=== PATIENT | male | born 1950 | race Caucasian/White ===

== ENCOUNTER → 2016-11-18 | Outpatient (REF) | payer OTHER ==
[2016-11-18 12:05] LABS: ALBUMIN 3.8 GM/DL (3.2-5.2); ALBUMIN/GLOBULIN RATIO 1.41 (1.00-1.93); ALKALINE PHOSPHATASE 59 U/L (45-117); ALT/SGPT 26 U/L (12-78); ANION GAP 7 MEQ/L (8-16); AST/SGOT 21 U/L (15-37); BILIRUBIN,TOTAL 0.6 MG/DL (0.2-1.0); BLOOD UREA NITROGEN 22 MG/DL (7-18); CALCIUM LEVEL 8.8 MG/DL (8.8-10.2); CARBON DIOXIDE LEVEL 30 MEQ/L (21-32); CHLORIDE LEVEL 100 MEQ/L (98-107); CREATININE FOR GFR 1.06 MG/DL (0.70-1.30); GLOMERULAR FILTRATION RATE > 60.0 (>49); GLUCOSE, FASTING 167 MG/DL (80-110); POTASSIUM SERUM 4.8 MEQ/L (3.5-5.1); SODIUM LEVEL 137 MEQ/L (136-145); TOTAL PROTEIN 6.5 GM/DL (6.4-8.2)
== END ==
LOC: M SFHCCLAY 08:40
PROVIDERS: ATTEND Family Medicine
DX: E10.65 Type 1 diabetes mellitus with hyperglycemia (principal); Z12.5 Encounter for screening for malignant neoplasm of prostate; E55.9 Vitamin D deficiency, unspecified

== ENCOUNTER → 2016-11-21 | Outpatient (CLI) | payer BC, OTHER ==
[~2016-11-21] MED LIST: E-Z PAQUE 60% w/v SUSP 355ML BOTTLE As Ordered ONE; E-Z-GAS II EFFERVESCENT PACKET (SODIUM BICARB./CITRIC ACID/SIMETHICONE) As Ordered ONE; E-Z-HD 98% w/w 340GM SUSP BTL As Ordered ONE
--- NOTE | 2016-11-21 17:31 | REP ---
UPPER GI, AIR CONTRAST: The procedure was performed under the direct supervision of Dr. Kelsey. The images were reviewed with Dr. Kelsey. The cost accountant film shows no organomegaly or pathological masses. The intestinal gas pattern is nonspecific. There are vascular calcifications identified. Liquid barium and gas-producing granules were given in the erect position as well as liquid barium in the prone oblique position in order to perform a double-contrast upper GI examination. The oral and pharyngeal stages of deglutition are unremarkable. Esophageal transport is prompt and efficient and there is no esophagitis, stricture, mucosal ring, or hiatal hernia. There is gastroesophageal reflux demonstrated to the level of the thoracic inlet. The stomach granado are normally outlined. The rugal folds are smooth and regular. There is no gastritis, neoplasm, or ulcer disease. The duodenal granado are normally outlined. The mucosal folds are smooth and regular. There is no duodenitis, pancreatitis, peptic ulcer disease, or neoplasm. The visualized portion of the proximal small bowel appears normal in course and caliber. IMPRESSION: There is gastroesophageal reflux demonstrated to the level of the thoracic inlet, otherwise unremarkable double contrast upper GI examination. 1 minute and 52 seconds of fluoroscopic time was utilized for this procedure. Reviewed by EDWARD Jane 11/22/2016 03:26 PEdited and Signed by Juaquin Kelsey MD 11/22/2016 04:54 P
== END ==
LOC: M RAD 08:42
PROVIDERS: ATTEND Family Medicine
DX: R13.14 Dysphagia, pharyngoesophageal phase (principal)

== ENCOUNTER → 2017-05-16 | Outpatient (REF) | payer MEDICARE, OTHER | LOC: M SFHCPLAZ 10:23 | PROVIDERS: ATTEND Family Medicine | DX: R63.4 Abnormal weight loss (principal); E10.65 Type 1 diabetes mellitus with hyperglycemia; E55.9 Vitamin D deficiency, unspecified; D51.9 Vitamin B12 deficiency anemia, unspecified ==

== ENCOUNTER → 2017-05-21 | Outpatient (REF) | payer MEDICARE, OTHER ==
[2017-05-21 12:49] LABS: VITAMIN B12 LEVEL 470 PG/ML (247-911)
[2017-05-21 13:03] LABS: ALBUMIN 3.8 GM/DL (3.2-5.2); ALBUMIN/GLOBULIN RATIO 1.23 (1.00-1.93); ALKALINE PHOSPHATASE 55 U/L (45-117); ALT/SGPT 29 U/L (12-78); ANION GAP 5 MEQ/L (8-16); AST/SGOT 20 U/L (15-37); BILIRUBIN,TOTAL 0.6 MG/DL (0.2-1.0); BLOOD UREA NITROGEN 26 MG/DL (7-18); CALCIUM LEVEL 8.6 MG/DL (8.8-10.2); CARBON DIOXIDE LEVEL 32 MEQ/L (21-32); CHLORIDE LEVEL 102 MEQ/L (98-107); CREATININE FOR GFR 0.92 MG/DL (0.70-1.30); FREE T4 0.86 NG/DL (0.76-1.46); GLOMERULAR FILTRATION RATE > 60.0 (>49); GLUCOSE, FASTING 125 MG/DL (80-110); MEAN CORPUSCULAR HEMOGLOBIN 31.8 pg (27.0-33.0); MEAN CORPUSCULAR HGB CONC 34.2 g/dl (32.0-36.5); MEAN CORPUSCULAR VOLUME 92.8 fl (80.0-96.0); POTASSIUM SERUM 4.9 MEQ/L (3.5-5.1); SODIUM LEVEL 139 MEQ/L (136-145); TOTAL PROTEIN 6.9 GM/DL (6.4-8.2); WHITE BLOOD COUNT 4.6 K/mm3 (4.0-10.0)
== END ==
LOC: M SFHCPLAZ 09:00 → M LABDRAWC 09:20
PROVIDERS: ATTEND Family Medicine
DX: R63.4 Abnormal weight loss (principal); E10.65 Type 1 diabetes mellitus with hyperglycemia; E55.9 Vitamin D deficiency, unspecified; D51.9 Vitamin B12 deficiency anemia, unspecified

== ENCOUNTER 2017-08-13 11:05 | Day surgery (SDC) | payer MEDICARE, BC, OTHER ==
[~2017-08-13] VITALS: Ht 175.3 cm; Wt 74.8 kg
[~2017-08-13 11:05] MED LIST changes: +ASPI325T28 PO; +ATEN50TA2 PO; +ATOR1TAB19 PO; +DESM1TAB4 PO; -E-Z PAQUE 60% w/v SUSP 355ML BOTTLE As Ordered ONE; -E-Z-GAS II EFFERVESCENT PACKET (SODIUM BICARB./CITRIC ACID/SIMETHICONE) As Ordered ONE; -E-Z-HD 98% w/w 340GM SUSP BTL As Ordered ONE; +FISH1000 PO; +GABA-282 PO; +INSUH10VL SC; +LOSA50TA20 PO; +TOUJ1.2I SC; +VITA100067 PO; +VITA500T3 PO
[2017-08-13] MEDS ORDERED: NS 1,000 ML IV ONE (12:45)
[2017-08-13] MEDS ORDERED: LIDOCAINE 2% INJ 100 MG/5 ML SDV (FOR ANES.) As Ordered ONE (13:13)
[2017-08-13] MEDS ORDERED: PROPOFOL 200 MG/20 ML VIAL As Ordered ONE ×2 (13:13→13:16)
--- NOTE | 2017-08-13 13:31 | ROOR ---
Patient Name: Ayaz De Souza Procedure Date: 08/13/2017 1:17 PM Date of : 1950 Age: 67 Room: [facility] Gender: Male Note Status: Finalized Procedure: Upper GI endoscopy Indications: Follow-up of gastroparesis Providers: Asif De Los Santos MD Referring MD: Ronni Teran MD Requesting Provider: Medicines: Monitored Anesthesia Care Complications: No immediate complications. Procedure: Pre-Anesthesia Assessment: - The heart rate, respiratory rate, oxygen saturations, blood pressure, adequacy of pulmonary ventilation, and response to care were monitored throughout the procedure. The Endoscope was introduced through the mouth, and advanced to the second part of duodenum. The upper GI endoscopy was accomplished without difficulty. The patient tolerated the procedure well. Findings: The Z-line was variable and was found 40 cm from the incisors. A small hiatal hernia was present. No other significant abnormalities were identified in a careful examination of the stomach. The exam of the duodenum was otherwise normal. Impression: - Z-line variable, 40 cm from the incisors. - Small hiatal hernia. - No specimens collected. - The examination was otherwise normal. Recommendation: - Patient has a contact number available for emergencies. The signs and symptoms of potential delayed complications were discussed with the patient. Return to normal activities tomorrow. Written discharge instructions were provided to the patient. - High fiber diet. - Discharge patient to home. - Follow an antireflux regimen. - Continue present medications. - Return to referring physician. - The findings and recommendations were discussed with the patient's family. Asif De Los Santos MD Asif De Los Santos MD 08/13/2017 1:30:57 PM This report has been signed electronically. Number of Addenda: 0 Note Initiated On: 08/13/2017 1:17 PM Estimated Blood Loss: Estimated blood loss: none.
--- NOTE | 2017-08-13 13:48 | ROOR ---
Patient Name: Ayaz De Souza Procedure Date: 08/13/2017 1:19 PM Date of : 1950 Age: 67 Room: [facility] Gender: Male Note Status: Finalized Procedure: Total Colonoscopy to Cecum + Cold Snare Polypectomy Indications: High risk colon cancer surveillance: Personal history of colonic polyps Providers: Asif De Los Santos MD Referring MD: Ronni Teran MD Requesting Provider: Medicines: Monitored Anesthesia Care Complications: No immediate complications. Procedure: Pre-Anesthesia Assessment: - The heart rate, respiratory rate, oxygen saturations, blood pressure, adequacy of pulmonary ventilation, and response to care were monitored throughout the procedure. The Colonoscope was introduced through the anus and advanced to the cecum, identified by appendiceal orifice and ileocecal valve. The colonoscopy was performed without difficulty. The patient tolerated the procedure well. The quality of the bowel preparation was adequate to identify polyps. Findings: The perianal and digital rectal examinations were normal. Non-bleeding internal hemorrhoids were found during retroflexion. The hemorrhoids were small and Grade I (internal hemorrhoids that do not prolapse). Scattered small-mouthed diverticula were found in the recto-sigmoid colon, sigmoid colon and descending colon. A small polyp was found at 10 cm proximal to the anus. The polyp was sessile. The polyp was removed with a cold snare. Resection and retrieval were complete. A small polyp was found in the ascending colon. The polyp was sessile. The polyp was removed with a cold snare. Resection and retrieval were complete. The exam was otherwise without abnormality on direct and retroflexion views. Impression: - Non-bleeding internal hemorrhoids. - Diverticulosis in the recto-sigmoid colon, in the sigmoid colon and in the descending colon. - One small polyp at 10 cm proximal to the anus, removed with a cold snare. Resected and retrieved. - One small polyp in the ascending colon, removed with a cold snare. Resected and retrieved. - The examination was otherwise normal on direct and retroflexion views. - The exam was otherwise normal to the cecum. Recommendation: - Patient has a contact number available for emergencies. The signs and symptoms of potential delayed complications were discussed with the patient. Return to normal activities tomorrow. Written discharge instructions were provided to the patient. - High fiber diet. - Discharge patient to home. - Continue present medications. - Await pathology results. - Telephone GI clinic for pathology results in 1 week. - Repeat colonoscopy in 5 years for surveillance based on pathology results. - Return to referring physician. - The findings and recommendations were discussed with the patient's family. Asif De Los Santos MD Asif De Los Santos MD 08/13/2017 1:47:43 PM This report has been signed electronically. Number of Addenda: 0 Note Initiated On: 08/13/2017 1:19 PM Estimated Blood Loss: Estimated blood loss: none.
[2017-08-13 14:21] VITALS: BP 126/65
== END 2017-08-13 14:50 | disposition home or self-care (01) ==
LOC: M OPP 11:05
PROVIDERS: ATTEND Internal Medicine Gastroenterology
DX: Z12.11 Encounter for screening for malignant neoplasm of colon (principal); Z86.010 Personal history of colon polyps; K62.1 Rectal polyp; D12.2 Benign neoplasm of ascending colon; K64.0 First degree hemorrhoids; K57.30 Diverticulosis of large intestine without perforation or abscess without bleeding; K31.84 Gastroparesis; K22.8 Other specified diseases of esophagus; K44.9 Diaphragmatic hernia without obstruction or gangrene; R12 Heartburn; R00.1 Bradycardia, unspecified; I48.91 Unspecified atrial fibrillation; I10 Essential (primary) hypertension; E78.5 Hyperlipidemia, unspecified; Z95.0 Presence of cardiac pacemaker; E10.9 Type 1 diabetes mellitus without complications; M19.90 Unspecified osteoarthritis, unspecified site; R21 Rash and other nonspecific skin eruption; G62.9 Polyneuropathy, unspecified; G47.30 Sleep apnea, unspecified; R06.83 Snoring; R35.1 Nocturia; R19.8 Other specified symptoms and signs involving the digestive system and abdomen; Z79.82 Long term (current) use of aspirin; Z79.899 Other long term (current) drug therapy

== ENCOUNTER → 2017-12-15 | Outpatient (REF) | payer MEDICARE, OTHER ==
[2017-12-15 11:21] LABS: BASO % 0.6 % (0.0-1.0); EOS # 0.1 10^3/uL (0.0-0.50); HEMATOCRIT 39.5 % (42.0-52.0); HEMOGLOBIN 13.2 g/dl (13.5-17.5); IMMATURE GRANULOCYTE % 0.2 % (0-3.0); LYMPH # 1.3 10^3/uL (1.5-4.5); MEAN CORPUSCULAR HEMOGLOBIN 31.1 pg (27.0-33.0); MEAN CORPUSCULAR HGB CONC 33.4 g/dl (32.0-36.5); MEAN CORPUSCULAR VOLUME 93.2 fl (80.0-96.0); MONO # 0.5 10^3/uL (0.0-0.8); MONO % 11.5 % (0.0-5.0); NEUTROPHILS # 2.6 10^3/uL (1.8-7.7); NEUTROPHILS % 55.7 % (36.0-66.0); PLATELET COUNT, AUTOMATED 130 10^3/uL (150-450); RED BLOOD COUNT 4.24 10^6/uL (4.30-6.10); RED CELL DISTRIBUTION WIDTH 12.4 % (11.5-14.5); WHITE BLOOD COUNT 4.6 10^3/uL (4.0-10.0)
[2017-12-15 11:39] LABS: ESTIMATED AVERAGE GLUCOSE 174 MG/DL (60-110); HEMOGLOBIN A1c 7.7 %
[2017-12-15 11:54] LABS: TOTAL 25(OH) VITAMIN D 48.5 NG/ML (30.0-100.0)
[2017-12-15 12:31] LABS: ALBUMIN 3.7 GM/DL (3.2-5.2); ALBUMIN/GLOBULIN RATIO 1.16 (1.00-1.93); ALKALINE PHOSPHATASE 55 U/L (45-117); ALT/SGPT 27 U/L (12-78); ANION GAP 6 MEQ/L (8-16); AST/SGOT 22 U/L (7-37); BILIRUBIN,TOTAL 0.4 MG/DL (0.2-1.0); BLOOD UREA NITROGEN 24 MG/DL (7-18); CALCIUM LEVEL 8.4 MG/DL (8.8-10.2); CARBON DIOXIDE LEVEL 27 MEQ/L (21-32); CHLORIDE LEVEL 105 MEQ/L (98-107); CHOLESTEROL LEVEL 154 MG/DL (<200); CHOLESTEROL RISK RATIO 1.811 (<5); CREATININE FOR GFR 0.95 MG/DL (0.70-1.30); GLOMERULAR FILTRATION RATE > 60.0 (>49); GLUCOSE, FASTING 163 MG/DL (70-100); HDL CHOLESTEROL 85 MG/DL (>40); LDL CHOLESTEROL 60.2 MG/DL (<100); NON-HDL-C 69 MG/DL; PSA SCREENING 0.63 NG/ML (< 4.0); SODIUM LEVEL 138 MEQ/L (136-145); TOTAL PROTEIN 6.9 GM/DL (6.4-8.2); TRIGLYCERIDES LEVEL 44 MG/DL (<150)
[2017-12-15 12:43] LABS: MALB URINE SIEMENS 27.6 MG/L; MAU/CREAT RATIO 15.4 MCG/MG (0.0-30.0)
== END ==
LOC: M SFHCCLAY 08:27
DX: D51.9 Vitamin B12 deficiency anemia, unspecified (principal); E78.4 Other hyperlipidemia; E10.65 Type 1 diabetes mellitus with hyperglycemia; Z12.5 Encounter for screening for malignant neoplasm of prostate; K31.84 Gastroparesis; E55.9 Vitamin D deficiency, unspecified
CPT/HCPCS: 84443

== ENCOUNTER → 2018-03-31 | Outpatient (REF) | payer MEDICARE, OTHER ==
[2018-03-31 12:07] LABS: ANION GAP 4 MEQ/L (8-16); BLOOD UREA NITROGEN 18 MG/DL (7-18); CALCIUM LEVEL 8.2 MG/DL (8.8-10.2); CARBON DIOXIDE LEVEL 31 MEQ/L (21-32); CHLORIDE LEVEL 105 MEQ/L (98-107); CREATININE FOR GFR 0.84 MG/DL (0.70-1.30); GLOMERULAR FILTRATION RATE > 60.0 (>49); GLUCOSE, FASTING 79 MG/DL (70-100); POTASSIUM SERUM 4.4 MEQ/L (3.5-5.1); SODIUM LEVEL 140 MEQ/L (136-145)
== END ==
LOC: M LABDRAWC 11:27
DX: E10.42 Type 1 diabetes mellitus with diabetic polyneuropathy (principal)
CPT/HCPCS: 80048

== ENCOUNTER → 2019-02-12 | Outpatient (REF) | payer MEDICARE, OTHER ==
[~2019-02-12] MED LIST changes: +ASPI-222 PO; -ASPI325T28 PO; +DESM0.1T2 PO; -DESM1TAB4 PO; -GABA-282 PO; +GABA-843 PO; -LOSA50TA20 PO; +LOSA50TA88 PO
[2019-02-12 16:55] LABS: HEMATOCRIT 39.2 % (42.0-52.0); HEMOGLOBIN 13.1 g/dl (13.5-17.5); MEAN CORPUSCULAR HEMOGLOBIN 30.8 pg (27.0-33.0); MEAN CORPUSCULAR HGB CONC 33.4 g/dl (32.0-36.5); MEAN CORPUSCULAR VOLUME 92.2 fl (80.0-96.0); PLATELET COUNT, AUTOMATED 128 10^3/uL (150-450); RED BLOOD COUNT 4.25 10^6/uL (4.30-6.10); WHITE BLOOD COUNT 5.1 10^3/uL (4.0-10.0)
[2019-02-12 17:03] LABS: ALBUMIN 3.5 GM/DL (3.2-5.2); ALT/SGPT 35 U/L (12-78); BILIRUBIN,TOTAL 0.4 MG/DL (0.2-1.0); BLOOD UREA NITROGEN 24 MG/DL (7-18); CALCIUM LEVEL 8.4 MG/DL (8.8-10.2); CARBON DIOXIDE LEVEL 28 MEQ/L (21-32); CHLORIDE LEVEL 103 MEQ/L (98-107); CHOLESTEROL LEVEL 147 MG/DL (<200); CHOLESTEROL RISK RATIO 1.837 (<5); CREATININE FOR GFR 0.87 MG/DL (0.70-1.30); GLOMERULAR FILTRATION RATE > 60.0 (>49); GLUCOSE, FASTING 152 MG/DL (70-100); HDL CHOLESTEROL 80 MG/DL (>40); LDL CHOLESTEROL 58 MG/DL (<100); NON-HDL-C 67 MG/DL; POTASSIUM SERUM 5.1 MEQ/L (3.5-5.1); SODIUM LEVEL 136 MEQ/L (136-145); TOTAL PROTEIN 6.8 GM/DL (6.4-8.2); TRIGLYCERIDES LEVEL 44 MG/DL (<150)
[2019-02-12 17:32] LABS: MALB URINE SIEMENS 26.2 MG/L; MAU/CREAT RATIO 24.7 MCG/MG (0.0-30.0)
[2019-02-12 18:16] LABS: HEMOGLOBIN A1c 6.5 %
== END ==
LOC: M SFHCCLAY 09:07
PROVIDERS: ATTEND Family Medicine
DX: Z12.5 Encounter for screening for malignant neoplasm of prostate (principal); E78.49 Other hyperlipidemia; I48.0 Paroxysmal atrial fibrillation; E10.65 Type 1 diabetes mellitus with hyperglycemia
CPT/HCPCS: 80053; 80061; 82043; 83036; 85027; G0103

== ENCOUNTER → 2019-08-04 | Outpatient (REF) | payer MEDICARE, OTHER ==
[~2019-08-04] MED LIST changes: -ASPI-222 PO; +ASPI-527 PO; +CYAN500T8 PO; -VITA500T3 PO
[2019-08-04 12:47] LABS: MALB URINE SIEMENS 10.9 MG/L; MAU/CREAT RATIO 10.9 MCG/MG (0.0-30.0)
== END ==
LOC: M LAB REF 11:21 → M LABDRAWC 11:21
PROVIDERS: ATTEND Nurse Practitioner Family
DX: E10.42 Type 1 diabetes mellitus with diabetic polyneuropathy (principal)

== ENCOUNTER → 2019-10-15 | Outpatient (REF) | payer MEDICARE, OTHER ==
[2019-10-15 11:54] LABS: HEMATOCRIT 43.3 % (42.0-52.0); MEAN CORPUSCULAR HEMOGLOBIN 30.4 pg (27.0-33.0); MEAN CORPUSCULAR HGB CONC 32.3 g/dl (32.0-36.5); MEAN CORPUSCULAR VOLUME 93.9 fl (80.0-96.0); PLATELET COUNT, AUTOMATED 154 10^3/uL (150-450); RED BLOOD COUNT 4.61 10^6/uL (4.30-6.10); WHITE BLOOD COUNT 7.2 10^3/uL (4.0-10.0)
[2019-10-15 12:16] LABS: ALT/SGPT 31 U/L (12-78); BILIRUBIN,TOTAL 0.5 MG/DL (0.2-1.0); BLOOD UREA NITROGEN 26 MG/DL (7-18); CALCIUM LEVEL 8.7 MG/DL (8.8-10.2); CARBON DIOXIDE LEVEL 29 MEQ/L (21-32); CHLORIDE LEVEL 100 MEQ/L (98-107); CHOLESTEROL LEVEL 157 MG/DL (<200); CHOLESTEROL RISK RATIO 1.764 (<5); CREATININE FOR GFR 1.01 MG/DL (0.70-1.30); FOLATE 10.1 NG/ML (>5.4); FREE T4 0.99 NG/DL (0.76-1.46); GLOMERULAR FILTRATION RATE > 60.0 (>49); GLUCOSE, FASTING 209 MG/DL (70-100); HDL CHOLESTEROL 89 MG/DL (>40); LDL CHOLESTEROL 61 MG/DL (<100); NON-HDL-C 68 MG/DL; POTASSIUM SERUM 5.4 MEQ/L (3.5-5.1); SODIUM LEVEL 136 MEQ/L (136-145); TOTAL PROTEIN 7.2 GM/DL (6.4-8.2); TRIGLYCERIDES LEVEL 37 MG/DL (<150); VITAMIN B12 LEVEL > 2000 PG/ML (247-911)
[2019-10-15 12:34] LABS: HEMOGLOBIN A1c 6.5 %
[2019-10-17 00:10] LABS: TESTOSTERONE FREE (DIRECT) 7.3 pg/mL (6.6-18.1)
== END ==
LOC: M SFHCPLAZ 09:52
PROVIDERS: ATTEND Family Medicine
DX: E10.69 Type 1 diabetes mellitus with other specified complication (principal); D51.9 Vitamin B12 deficiency anemia, unspecified; I10 Essential (primary) hypertension; E78.5 Hyperlipidemia, unspecified

== ENCOUNTER → 2020-03-27 | Outpatient (REF) | payer MEDICARE, OTHER ==
[2020-03-27 19:32] LABS: VITAMIN B12 LEVEL 1048 PG/ML
[2020-03-27 19:33] LABS: FOLATE 10.8 NG/ML
[2020-03-27 19:47] LABS: HEMOGLOBIN A1c 6.6 %
[2020-03-28 16:34] LABS: ALBUMIN 4.41 GM/DL (3.29-5.55); ALPHA-1-GLOBULIN % 3.7 % (2.9-4.9); ALPHA-1-GLOBULINS 0.26 GM/DL (0.17-0.41); ALPHA-2-GLOBULINS 0.53 GM/DL (0.42-0.99); ALPHA-2-GLOBULINS % 7.6 % (7.1-11.8); BETA-1-GLOBULINS 0.35 GM/DL (0.28-0.60); BETA-2-GLOBULINS % 4.3 % (3.2-6.5); GAMMA GLOBULIN % 16.4 % (11.1-18.8); GAMMA GLOBULINS 1.15 GM/DL (0.65-1.58)
[2020-04-01 17:07] LABS: CERULOPLASMIN 22.5 mg/dL (16.0-31.0); VITAMIN B1 LEVEL WHOLE BLOOD 77.3 nmol/L (66.5-200.0); VITAMIN B6,PYRIDOXAL PHOSPHATE 19.2 ug/L (5.3-46.7); VITAMIN E(ALPHA TOCOPHEROL) 10.2 mg/L (9.0-29.0); VITAMIN E(GAMMA TOCOPHEROL) 1.8 mg/L (0.5-4.9)
== END ==
LOC: M LABDRAWC 16:01
PROVIDERS: ATTEND Psychiatry & Neurology Neurology
DX: E11.9 Type 2 diabetes mellitus without complications (principal); D51.9 Vitamin B12 deficiency anemia, unspecified; G90.09 Other idiopathic peripheral autonomic neuropathy; Z79.84 Long term (current) use of oral hypoglycemic drugs; Z79.899 Other long term (current) drug therapy

== ENCOUNTER → 2020-06-01 | Outpatient (CLI) | payer MEDICARE, BC, OTHER ==
[2020-06-01 14:42] LABS: BLOOD UREA NITROGEN 16 MG/DL (7-18); CALCIUM LEVEL 8.7 MG/DL (8.8-10.2); CARBON DIOXIDE LEVEL 30 MEQ/L (21-32); CHLORIDE LEVEL 102 MEQ/L (98-107); CREATININE FOR GFR 0.96 MG/DL (0.70-1.30); GLOMERULAR FILTRATION RATE > 60.0 (>49); GLUCOSE, FASTING 76 MG/DL (70-100); POTASSIUM SERUM 4.8 MEQ/L (3.5-5.1); SODIUM LEVEL 137 MEQ/L (136-145)
== END ==
LOC: M PLALAB 09:53
PROVIDERS: ATTEND Physician Assistant
DX: E11.9 Type 2 diabetes mellitus without complications (principal)
CPT/HCPCS: 36415; 80048; G0463

== ENCOUNTER → 2020-06-05 | Outpatient (CLI) | payer MEDICARE, BC, OTHER ==
[~2020-06-05] MED LIST changes: +ISOVUE-370 76% 100ML VIAL As Ordered ONE
--- NOTE | 2020-06-05 08:21 | REPVR ---
PROCEDURE INFORMATION: Exam: CT Neck With Contrast Exam date and time: 06/05/2020 8:01 AM Age: 70 years old Clinical indication: Pain; Other: Lyarnx dysphonia TECHNIQUE: Imaging protocol: Computed tomography images of the neck with intravenous contrast. Radiation optimization: All CT scans at this facility use at least one of these dose optimization techniques: automated exposure control; mA and/or kV adjustment per patient size (includes targeted exams where dose is matched to clinical indication); or iterative reconstruction. Contrast material: ISOVUE 370; Contrast volume: 75 ml; Contrast route: INTRAVENOUS (IV); COMPARISON: No relevant prior studies available. FINDINGS: Paranasal sinuses: Opacified left maxillary sinus. Nasopharynx: Unremarkable. Oropharynx: Unremarkable. No significant tonsillar enlargement. Hypopharynx: Asymmetric mucosal thickening with partial effacement of the right piriform recess. Larynx: Unremarkable. Normal epiglottis. Retropharyngeal space: Unremarkable. Submandibular/Parotid glands: Normal. Glands are normal in size. Thyroid: Normal. No enlarged or calcified nodules. Lymph nodes: Unremarkable. No lymphadenopathy. Trachea: Visualized trachea is unremarkable. Lungs: Left chest pacemaker. Bones/joints: Severe multilevel degenerative disease. Stenosis of the spinal canal and neural foramina at several levels most pronounced at C6-C7. Vasculature: Atherosclerotic disease. Soft tissues: Unremarkable. No significant soft tissue swelling. IMPRESSION: Asymmetric mucosal thickening with partial effacement of the right piriform recess. Electronically signed by: Dane Medrano On 06/05/2020 08:21:41 AM
== END ==
LOC: M RAD 07:18
PROVIDERS: ATTEND Physician Assistant
DX: R49.0 Dysphonia (principal)
CPT/HCPCS: 70491; Q9967

== ENCOUNTER → 2020-07-31 | Outpatient (REF) | payer MEDICARE, OTHER ==
[~2020-07-31] MED LIST changes: -ISOVUE-370 76% 100ML VIAL As Ordered ONE
[2020-07-31 18:49] LABS: CREATININE, URINE 22.8 MG/DL; MALB URINE SIEMENS < 5.0 MG/L; MAU/CREAT RATIO 21.9 MCG/MG (0.0-30.0)
== END ==
LOC: M LAB REF 16:54
PROVIDERS: ATTEND Internal Medicine Endocrinology, Diabetes & Metabolism
DX: E10.42 Type 1 diabetes mellitus with diabetic polyneuropathy (principal)

== ENCOUNTER → 2021-03-27 | Outpatient (REF) | payer MEDICARE, OTHER ==
[~2021-03-27] MED LIST changes: +CYAN500T14 PO; -CYAN500T8 PO; +GABA-282 PO; -GABA-843 PO
[2021-03-27 12:18] LABS: HEMATOCRIT 41.4 % (42.0-52.0); HEMOGLOBIN 13.9 g/dl (13.5-17.5); MEAN CORPUSCULAR HEMOGLOBIN 31.2 pg (27.0-33.0); MEAN CORPUSCULAR HGB CONC 33.6 g/dl (32.0-36.5); MEAN CORPUSCULAR VOLUME 92.8 fl (80.0-96.0); PLATELET COUNT, AUTOMATED 140 10^3/uL (150-450); RED BLOOD COUNT 4.46 10^6/uL (4.30-6.10); WHITE BLOOD COUNT 4.7 10^3/uL (4.0-10.0)
[2021-03-27 12:56] LABS: ALBUMIN 3.6 GM/DL (3.2-5.2); ALT/SGPT 35 U/L (12-78); BILIRUBIN,TOTAL 0.5 MG/DL (0.2-1.0); BLOOD UREA NITROGEN 22 MG/DL (7-18); CALCIUM LEVEL 8.2 MG/DL (8.8-10.2); CARBON DIOXIDE LEVEL 29 MEQ/L (21-32); CHLORIDE LEVEL 102 MEQ/L (98-107); CHOLESTEROL LEVEL 138 MG/DL (<200); CHOLESTEROL RISK RATIO 1.815 (<5); CREATININE FOR GFR 0.96 MG/DL (0.70-1.30); GLOMERULAR FILTRATION RATE > 60.0 (>49); GLUCOSE, FASTING 185 MG/DL (70-100); HDL CHOLESTEROL 76 MG/DL (>40); LDL CHOLESTEROL 52 MG/DL (<100); MAGNESIUM LEVEL 2.4 MG/DL (1.8-2.4); NON-HDL-C 62 MG/DL; POTASSIUM SERUM 5.5 MEQ/L (3.5-5.1); SODIUM LEVEL 134 MEQ/L (136-145); TOTAL PROTEIN 6.7 GM/DL (6.4-8.2); TRIGLYCERIDES LEVEL 52 MG/DL (<150)
== END ==
LOC: M LABDRAWC 11:36
PROVIDERS: ATTEND Physician Assistant
DX: I48.3 Typical atrial flutter (principal); I10 Essential (primary) hypertension; E78.00 Pure hypercholesterolemia, unspecified

== ENCOUNTER → 2021-07-16 | Outpatient (CLI) | payer MEDICARE, BC, OTHER ==
[~2021-07-16] MED LIST changes: +AMIT50TA; +PREG150C
== END ==
LOC: M LABSMTC 09:57
PROVIDERS: ATTEND Anesthesiology
DX: Z01.812 Encounter for preprocedural laboratory examination (principal)

== ENCOUNTER 2021-07-19 11:45 | Day surgery (SDC) | payer MEDICARE, BC, OTHER ==
[~2021-07-19] VITALS: Ht 175.3 cm; Wt 88.9 kg
[~2021-07-19 11:45] MED LIST changes: +LR 1,000 ML IV ONE; +ceFAZolin SOD 2 GM in IV 1 EA IV ONE
--- OUTSIDE RECORDS SUMMARY | 2021-07-19 11:50 | CCD ---
Author Author [facility] Organization [facility] Address Unknown Phone Unavailable Care Team Providers Care Box Car Loader Name Role Phone Elier Valencia Unavailable PROBLEMS Type Condition ICD9-CM Code VEA13-AU Code Onset Dates Condition S tatus W/U Status Risk SNOMED Code Notes Problem Paroxysmal atrial fibrillation I48.0 Active confir med 649796209 Problem Encounter for screening for malignant neoplasm of prostate Z12.5 Active confirmed 741335157 Problem Essential (primary) hypertension I10 Active conf irmed 92178217 Problem Type 1 diabetes mellitus with hyperglycemia E10.65 Active confirmed 658857315871077 Problem Enlarged prostate with lower urinary tract symptoms N40.1 Active confirmed 56651701443480 Problem Vitamin D deficiency, unspecified E55.9 Active con firmed 34492701 Problem Vitamin B12 deficiency anemia, unspecified D51.9 Active confirmed 62116220 Problem Esophageal dysphagia R13.14 Active confirmed 26824327 Problem 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.43 Active confirmed 080629527 Problem Gastroparesis K31.84 Active confirmed 656257 006 Problem Erectile dysfunction, unspecified erectile dysfunction typ e N52.9 Active confirmed 097886328 Problem Presence of cardiac pacemaker Z95.0 Active confirm ed 532566330 Problem Controlled type 1 diabetes mellitus with diabeti c polyneuropathy E10.42 Active confirmed 44039881 Problem Diabetic erectile dysfunction associated with type 1 diabetes mellitus E10.69 Active confirmed 660128018931 Problem Medicare annual wellness visit, subsequent Z00.00 Active confirmed 044463791 Problem Other hyperlipidemia E78.4 Active confirmed 49384287 Problem Acquired 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 Active confirm ed 6832212 Problem Painful diabetic neuropathy E11.40 Active confirmed 910638676 ALLERGIES Allergen (clinical drug ingredient) Drug/Non Drug Allergy do cumented on EMR Reaction Allergy Type Onset Date Status audichioomi calvolinaamie (as needed) no effect Non Drug Allergy Active ENCOUNTERS from 1950 to 2021-04-30 Encounter Location Date Provider Diagnosis [facility] Sebastian SOLIS [phone] [place] [address] 13 Apr, 2021 Elier Valencia Controlled type 1 diabetes mellitus with hypoglycemia E10.649 ; 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 ; Controlled type 1 diabetes mellitus with diabetic polyneuropathy E10.42 ; Essential (primary) hypertension I10 ; Other hyperlipidemia E78.4 ; Paroxysmal atrial fibrillation I48.0 ; Enlarged prostate with lower urinary tract symptoms N40.1 ; Vitamin B12 deficiency anemia, unspecified D51.9 ; Vitamin D deficiency, unspecified E55.9 and Encounter for immunization Z23 IMMUNIZATIONS Vaccine Route Administration Date Status Moderna #2 dose COVID-19(given elsewhere) SARSCOV2 VAC 100MC G/0.5ML IM Unknown January 11, 2021 Administered Influenza (High Dose 65 & up) Unknown Jun 26, 2018 Ad ministered Influenza (High Dose 65 & up) Unknown Jul 23, 2017 Ad ministered Pneumococcal Adult 0.5mL Pneumovax 23 IM Intramuscular Apr 27 021 Administered Pneumococcal 0.5mL Prevnar 13 IM Intramuscular Jul 10, 2018 A dministered Influenza 6mo & up Fluzone Unknown Jul 16, 2016 Admin istered Moderna #1 dose COVID-19(given elsewhere) SARSCOV2 VAC 100MC G/0.5ML IM Unknown December 14, 2020 Administered Influenza 6mo & up Fluzone Unknown Aug 01, 2012 Admin istered Influenza 6mo & up Fluzone IM Intramuscular Jul 10, 2011 Admi nistered Influenza 6mo & up Fluzone IM Intramuscular Jun 19, 2010 Admi nistered SOCIAL HISTORY Tobacco Use: Social History Observation Description Date Details (start date - stop date) Never Smoker Sex Assigned At : Social History Observation Description Sex Assigned At Unknown Audit Question Answer Notes Total Score: 3 Interpretation: Alcohol Education Language: Question Answer Notes Languages spoken: Andorran Sexual Hx: Question Answer Notes Had sex in the last 12 months (vaginal, oral, or anal)? Yes Have you ever had an STD? No with Women only Use protection? No Drug and Alcohol Question Answer Notes Total Score: 0 Interpretation: No problems reported Alcohol Screening: Question Answer Notes Did you have a drink containing alcohol in the past year? Ye s Points 3 Interpretation Negative How often did you have six or more drinks on one occas ion in the past year? Never (0 points) How many drinks did you have on a typica l day when you were drinking in the past year? 1 or 2 (0 points) How often did you have a drink containing alcohol in t he past year? Two to three times per week (3 points) Tobacco Use: Question Answer Notes Are you a: never smoker REASON FOR REFERRAL No Information VITAL SIGNS Weight 197 lbs Apr, Weight-kg 89.36 kg Apr, Height 69 in Apr, BMI 29.09 kg/m2 Apr, Heart Rate 70 /min Apr, Respiratory Rate 16 /min Apr, Temperature 97.9 degrees Fahrenheit Apr, Oximetry 97ra Apr, Blood pressure systolic 163 mm Hg Apr, Blood pressure diastolic 90 mm Hg Apr, MEDICATIONS Medication SIG (Take, Route, Frequency, Duration) Notes Start Da te End Date Status Amitriptyline HCl 50 MG 1 tablet at bedtime Orally Once a day for 3 0 day(s) Active Vitamin B-12 500 MCG 1 tab Orally Once a day Active NovoLOG 100 UNIT/ML ss Subcutaneous cover with up to 10 units each me al Active Aspirin 325 MG 1 tablet p.o. Once a day Active Atorvastatin Calcium 10 mg 1 tablet Orally Once a day for 90 day(s) Active Atenolol 50 MG 1 tablet Orally bid for 90 Active Tadalafil 5 MG 1 tablet as needed Orally Once a day for 90 day( s) Sep, Not-Taking Vitamin D (Cholecalciferol) 2000 2 tab(s) Orally daily Active DDAVP 0.1 MG 1&1/2 tablet Orally bedtime/ Active Toujeo SoloStar 300 UNIT/ML 27 units am Subcutaneous once daily Active Pregabalin 150 MG 1 capsule Orally three times a day Active Lac-Hydrin 12 % 1 application to affected area Externally Daily for 90 day(s) January, Active Multivitamins OTC 1 tablet p.o. Once a day occ Active Omeprazole 20 MG 1 capsule Orally Once a day for 90 Active Cozaar 50 mg 1 tablet Orally Twice a day for 90 day(s) Active PROCEDURES from 1950 to 2021-04-30 Procedure Date Ordered Result Body Site Imm: Pneumovax 23 0.5mL IM Pneumococcal 2021-04-27 N/A RESULTS No Results REASON FOR VISIT Patient here to transfer care from [facility]. MEDICAL (GENERAL) HISTORY Type Description Date Medical History Hypertension Medical History Diabetes mellitus type 1 wit h gastroparesis (suspected clinically) and polyneuropathy Medical History Hyperlipidemia Medical History Pacemaker- a fib/flutter Medical History Excessive nocturnal urination--on DDAVP from endo Medical History echo 2011: EF 65%, mild LAE, minimal diastoli dysfxn; 03/30: EF 60%, no change Medical History Vit D defic Medical History Borderline B12 defic Medical History GERD-- to thoracic inlet UGI 11/30 Medical History Erectile dysfxn Surgical History pacemaker 1998 Surgical History pacemaker generator replaced 01/24 Surgical History cataract extraction rt eye 2010 Surgical History multiple laser tx for DM retinopathy Surgical History colonoscopy--adenomatous polyp 12/22 Surgical History Colonoscopy--tubular adenoma , multiple diverticula. Repeat 5 yrs. 08/01 Surgical History EGD-Small hiatal hernia 08/01 Goals Section No Information Health Concerns No Information MEDICAL EQUIPMENT No Information MENTAL STATUS No Information FUNCTIONAL STATUS No Information ASSESSMENTS Encounter Date Diagnosis Assessment Notes Treatment Notes Treatm ent Clinical Notes Apr, Controlled type 1 diabetes savage logan with hypoglycemia (ICD-10 - E10.649) He will cont with Dr Ramachandran for now but we may assume control and management. He will discuss with her in order to keep relationship intact. 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 We discussed possible ENT and he will consider. Will recheck in 3-4 months. Pt agreeable. Apr, Controlled type 1 diabetes savage logan with diabetic polyneuropathy (ICD-10 - E10.42) Cont current regimen and with neurology. Apr, Essential (primary) hypertension (ICD-10 - I10) Cont with cardiology. Apr, Other hyperlipidemia (ICD-10 - E78.4) Labs have been monitored by cardiology, will try to get records. Apr, Paroxysmal atrial fibrillation (ICD-10 - I48.0) Cont with Cardiology. Apr, Enlarged prostate with lower urinary tract symptoms (ICD-10 - N40.1) Cont with DDAVP- this is helpful for him. Apr, Vitamin B12 deficiency anemia, unspecified (ICD- 10 - D51.9) Monitor labs annually, may be needed. Apr, Vitamin D deficiency, unspecified (ICD-10 - E55. 9) Will monitor annually, may be needed soon. Apr, Encounter for immunization (ICD-10 - Z23) Imms reviewed and is due for pneumovax. Encouraged Shingrix, he will consider. 45 minutes spent with pt today. PLAN OF TREATMENT Treatment Notes Assessment Notes Clinical Notes Controlled type 1 diabetes mellitus with hypoglycemia He will cont with Dr Ramachandran for now but we may assume control and management. He will discuss with her in order to keep relationship intact. Laryngeal dystonia He has appt coming u p with neurology and he would prefer to wait for any further workup until that visit. We discussed possible ENT and he will consider. Will recheck in 3-4 months. Pt agreeable. Controlled type 1 diabetes mellitus with diabetic polyneurop athy Cont current regimen and with neurology. Essential (primary) hypertension Cont cardiology. Other hyperlipidemia Labs have been matt tored by cardiology, will try to get records. Paroxysmal atrial fibrillation Cont with Cardiology. Enlarged prostate with lower urinary tract symptoms Cont with DDAVP- this is helpful for him. Vitamin B12 deficiency anemia, unspecified Monitor labs annually, may be needed. Vitamin D deficiency, unspecified Will m onitor annually, may be needed soon. Encounter for immunization Imms reviewed and is due for pneumovax. Encouraged Shingrix, he will consider. 45 minutes spent with pt today. Next Appt Details 3 Months- 4 Months Reason:30 minutes Provider Name:Elier Valencia, 10:30:00 AM, Ana SOLIS, , [place], [phone], Follow Up:3 Months- 4 [id number] minutes Insurance Providers Payer Name Payer Address Payer Phone Insured Name Patient Relati onship to Insured Coverage Start Date Coverage End Date MEDICARE Part A and B [address] [facility] [phone] PERRY KIGN self [facility] [address] [facility] [id number] PERRY KING self
--- OUTSIDE RECORDS SUMMARY | 2021-07-19 11:50 | CCD | Continuity of Care Document ---
Author Author Ayaz GREGORIOC Organization Unknown Address [address] [place] [address], [facility] [place] [address] Phone [phone] Care Team Providers Care Shell Freezing Machine Operator Name Role Phone Ronni Teran MD AUTM [phone] Imani Ramachandran MD AUTM [phone] Jose Rodas MD AUTM [phone] Almita Looney-C AUTM [phone] Dwayne Wang MD AUTM [phone] Problems Active Problems Provider Date Benign essential hypertension KEVON Trujillo-C Onset: Atrial flutter KEVON Trujillo-C Onset: 06/29/2012 Aortic valve disorder Beronica Gregorio PA-C Onset: 02/15/2016 Mitral leaflet abnormality Beronica Gregorio PA-C Onset: 02/14 Pure hypercholesterolemia Beronica Gregorio PA-C Onset: 2011 Sinus node dysfunction KEVON Trujillo-C Onset: 2 Cardiac pacemaker in situ Beronica Gregorio PA-C Onset: 2011 Mitral valve disorder Beronica Gregorio PA-C Onset: 06/30/2017 Social History Type Date Description Comments Sex Unknown Tobacco Use Start: Unknown Never Smoked Cigarettes ETOH Use Consumes Wine 1-2 glass weekly Tobacco Use Start: Unknown Patient has never smoked Smoking Status Reviewed: 12/29/20 Patient has never smoked Exercise Type/Frequency Does yardwork daily patel y wood or pellets in 40 lbs bags as needed Exercise Type/Frequency Does yardwork sporadical ly shoveling snow as needed Exercise Type/Frequency Walks sporadically Exercise Type/Frequency Does housework sporadica lly Exercise Type/Frequency Does gardening twice a w [place] Exercise Limitations Shortness Of Breath on exer tion Exercise Limitations Chest Discomfort on exertio n Exercise Limitations Joint Pain knee and hi p Allergies and adverse reactions Description No Known Drug Allergies Medications Active Medications SIG Qnty Indications Ordering Provide r Date Amitriptyline HCL 50mg Tablets 1 by mouth every day at bedtime Dwayne Wang MD 07/11/2021 Cozaar 50mg Tablets 1 by mout h daily Unknown 03/27/2021 Pregabalin 150mg Capsules 2 by mouth daily Dwayne Wang MD 12/28/2020 Vitamin D3 Ultra Strength 5000Unit Capsules 1 by mouth every day Unknown 019 Toujeo Solostar 300U nit/ML Solution Pen-Inject as per sliding scale as directed Karthik Ramachandran MD 02/14/[address] 1 by mouth every day Unknown 11/09/2014 Novolog 100Unit/ML Solution p er ss Unknown 10/22/2013 Atorvastatin Calcium 10mg Tablets 1 po qhs Imani Ramachandran MD 06/29/2012 Vitamin B-12 250mcg Tablets 1 po daily Ronni Teran MD 01/23/2012 Atenolol 50mg Tablets 1 PO bi d 0tabs Imani Ramachandran MD Multivitamins Tablets 1 PO d aily Ronni Teran MD Ddavp 0.1mg Tablets 1 1/2 PO daily Ronni Teran MD Covid-19 vaccine, Unspecified Inj ection Unknown Covid-19 vaccine, Unspecified Inj ection Unknown Immunizations Description No Information Available Vital Signs Date Vital Result Comment 07/12/2021 10:34am Weight 193.00 lb Height 69 inches 5'9" BMI (Body Mass Index) 28.5 kg/m2 12/29/2020 10:02am Weight 190.00 lb Height 69 inches 5'9" BMI (Body Mass Index) 28.1 kg/m2 Heart Rate 72 /min Regular Respiratory Rate 16 /min BP Systolic Right Arm 126 mmHg sitting, regular c uff BP Diastolic Right Arm 74 mmHg sitting, regular cuff BP Systolic Left Arm 124 mmHg sitting BP Diastolic Left Arm 74 mmHg sitting Results Test Acquired Date Facility Test Result H/L Range Note Comprehensive Metabolic Profil 03/27/2021 [facility] [phone] Glucose, Fasting 185 mg/dL High 70-100 Blood Urea Nitrogen 22 mg/dL High 7-18 Creatinine For GFR 0.96 mg/dL Normal 0.70-1.30 Glomerular Filtration Rate > 60.0 Normal >49 1 Sodium Level 134 mEq/L Low 136-145 Potassium Serum 5.5 mEq/L High 3.5-5.1 Chloride Level 102 mEq/L Normal 98-107 Carbon Dioxide Level 29 mEq/L Normal 21-32 Anion Gap 3 mEq/L Low 8-16 Calcium Level 8.2 mg/dL Low 8.8-10.2 Ast/Sgot 29 U/L Normal 7-37 Alt/SGPT 35 U/L Normal 12-78 Alkaline Phosphatase 67 U/L Normal 45-117 Bilirubin,Total 0.5 mg/dL Normal 0.2-1.0 Total Protein 6.7 GM/DL Normal 6.4-8.2 Albumin 3.6 GM/DL Normal 3.2-5.2 Albumin/Globulin Ratio 1.2 Normal Complete Blood Count 03/27/2021 [facility] enter [phone] White Blood Count 4.7 10 Normal 4.0-10.0 Red Blood Count 4.46 10 Normal 4.30-6.10 Hemoglobin 13.9 g/dL Normal 13.5-17.5 Hematocrit 41.4 % Low 42.0-52.0 Mean Corpuscular Volume 92.8 fl Normal 80.0-96.0 Mean Corpuscular Hemoglobin 31.2 pg Normal 27.0-33.0 Mean Corpuscular HGB Conc 33.6 g/dL Normal 32.0-36.5 Red Cell Distribution Width 11.9 % Normal 11.5-14.5 Platelet Count, Automated 140 10 Low 150-450 Nucleated Red Blood Cell % 0.0 % Normal 0-0 Laboratory test finding 03/27/2021 [facility] [phone] Magnesium Level 2.4 mg/dL Normal 1.8-2.4 Lipid Panel 03/27/2021 [facility] nter [phone] Triglycerides Level 52 mg/dL Normal <150 Cholesterol Level 138 mg/dL Normal <200 HDL Cholesterol 76 mg/dL Normal >40 LDL Cholesterol 52 mg/dL Normal <100 Non-HDL-C 62 mg/dL Normal Cholesterol Risk Ratio 1.815 Normal <5 1 Units are mL/min/1.73 m2 Chronic Kidney Disease Staging per NKF: Stage I & II GFR >=60 Normal to Mildly Decreased Stage III GFR 30-59 Moderately Decreased Stage IV GFR 15-29 Severely Decreased Stage V GFR <15 Very Little GFR Left ESRD GFR <15 on [employer] SALESPERSON Procedures Description No Information Available Medical Devices Description No Information Available Encounters Description No Information Available Assessments Description No Information Available Plan of Treatment No Information Available Functional Status Functional Condition Comment Date Status Independent with all ADL's Activ e Mental Status Description No Information Available Referrals Description No Information Available
--- OUTSIDE RECORDS SUMMARY | 2021-07-19 11:50 | CCD ---
Author Author [facility] Organization [facility] Address Unknown Phone Unavailable Care Team Providers Care Manager Cosmetic Name Role Phone Elier Valencia Unavailable PROBLEMS Type Condition ICD9-CM Code UGB70-CV Code Onset Dates Condition S tatus W/U Status Risk SNOMED Code Notes Problem Paroxysmal atrial fibrillation I48.0 Active confir med 869688067 Problem Encounter for screening for malignant neoplasm of prostate Z12.5 Active confirmed 366068803 Problem Essential (primary) hypertension I10 Active conf irmed 68281057 Problem Type 1 diabetes mellitus with hyperglycemia E10.65 Active confirmed 102505633894176 Problem Enlarged prostate with lower urinary tract symptoms N40.1 Active confirmed [id number] Problem Vitamin D deficiency, unspecified E55.9 Active con firmed 87468583 Problem Vitamin B12 deficiency anemia, unspecified D51.9 Active confirmed 14583388 Problem Esophageal dysphagia R13.14 Active confirmed 87574157 Problem 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.43 Active confirmed 681849729 Problem Gastroparesis K31.84 Active confirmed 748792 006 Problem Erectile dysfunction, unspecified erectile dysfunction typ e N52.9 Active confirmed 056804609 Problem Presence of cardiac pacemaker Z95.0 Active confirm ed 152255758 Problem Controlled type 1 diabetes mellitus with diabeti c polyneuropathy E10.42 Active confirmed 69849405 Problem Diabetic erectile dysfunction associated with type 1 diabetes mellitus E10.69 Active confirmed 454443122628 Problem Medicare annual wellness visit, subsequent Z00.00 Active confirmed 859406001 Problem Other hyperlipidemia E78.4 Active confirmed 77442129 Problem Acquired 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 Active confirm ed 8719830 Problem Painful diabetic neuropathy E11.40 Active confirmed 763330011 ALLERGIES Allergen (clinical drug ingredient) Drug/Non Drug Allergy do cumented on EMR Reaction Allergy Type Onset Date Status viagromi calvolis (as needed) no effect Non Drug Allergy Active ENCOUNTERS from 1950 to 2021-06-28 Encounter Location Date Provider Diagnosis [facility] [phone] [place] [address] 14 Jun, 2021 Elier Valencia IMMUNIZATIONS Vaccine Route Administration Date Status Moderna #2 dose COVID-19 (given elsewhere) SARSCOV2 VAC 100M CG/0.5ML IM Unknown January 11, 2021 Administered Influenza [...] 16, 2016 Admin istered Moderna #1 dose COVID-19 (given elsewhere) SARSCOV2 VAC 100M CG/0.5ML IM Unknown December 14, 2020 Administered Influenza [...] Education Language: Question Answer Notes Languages spoken: Macedonian Sexual Hx: Question Answer Notes Had sex [...] REASON FOR REFERRAL No Information VITAL SIGNS No information MEDICATIONS Medication SIG (Take, Route, Frequency, Duration) Notes Start Da te End Date Status Amitriptyline HCl 50 MG 1 tablet at bedtime Orally Once a day for 3 0 day(s) Active Pregabalin 150 MG 1 capsule Orally three times a day Active Atorvastatin Calcium 10 mg 1 tablet Orally Once a day for 90 day(s) Active Atenolol 50 MG 1 tablet Orally bid for 90 Active Aspirin 325 MG 1 tablet p.o. Once a day Active Multivitamins OTC 1 tablet p.o. Once a day occ Active Vitamin D (Cholecalciferol) 2000 2 tab(s) Orally daily Active Vitamin B-12 500 MCG 1 tab Orally Once a day Active NovoLOG 100 UNIT/ML ss Subcutaneous cover with up to 10 units each me al Active Lac-Hydrin 12 % 1 application to affected area Externally Daily for 90 day(s) January, Active Losartan Potassium 50 MG TAKE ONE TABLET BY MOUTH TWICE A DAY for 90 Active Tadalafil 5 MG 1 tablet as needed Orally Once a day for 90 day( s) Sep, Not-Taking Omeprazole 20 MG TAKE ONE CAPSULE BY MOUTH EVERY DAY for 90 Active DDAVP 0.1 MG 1&1/2 tablet Orally bedtime/ Active Gurdeep SoloStar 300 UNIT/ML 27 units am Subcutaneous once daily Active PROCEDURES No Information RESULTS No Results REASON FOR VISIT refill MEDICAL (GENERAL) HISTORY Type Description Date Medical [...] No Information FUNCTIONAL STATUS No Information ASSESSMENTS No Information PLAN OF TREATMENT Medication Medication Name Sig Start Date Stop Date Losartan Potassium 50 MG TAKE ONE TABLET BY MOUTH TWICE A DAY fo r 90 Omeprazole 20 MG TAKE ONE CAPSULE BY MOUTH EVERY DAY for 90 Next Appt Details Provider Name:Eliervinny Valencia, 10:30:00 AM, [address] , , [place], [address], Insurance Providers Payer Name Payer Address Payer Phone Insured Name Patient Relati onship to Insured Coverage Start Date Coverage End Date MEDICARE Part A and B [address] [facility] [id number] [facility]ERRY [facility] [address] [facility] [id number] PERRY KING
--- OUTSIDE RECORDS SUMMARY | 2021-07-19 11:50 | CCD | Continuity of Care Document ---
Author Author Ayaz GREGORIO-C Organization Unknown Address [address] [place] [address], [place] [address] Phone [phone] Care Team Providers Care Belt Loop Cutter Name Role Phone Ronni Teran MD AUTM [phone] Imani Ramachandran MD AUTM [phone] Jose Rodas MD AUTM [phone] Almita Looney-C AUTM [phone] Dwayne Wang MD AUTM [phone] Elier Valencia DO AUTM [phone] Problems Active Problems Provider Date Benign essential hypertension KEVON Trujillo-C Onset: Atrial flutter KEVON Trujillo-C Onset: 06/29/2012 Aortic valve disorder Beronica Gregorio PA-C Onset: 02/15/2016 Mitral leaflet abnormality KEVON Trujillo-C Onset: 02/14 Pure hypercholesterolemia Beronica Gregorio PA-C Onset: 2011 Sinus node dysfunction Beronica Gregorio PA-C Onset: 2 Cardiac pacemaker in situ KEVON Trujillo-Miguel Onset: 2011 Mitral valve disorder KEVON Trujillo-C Onset: 06/30/2017 Social History Type Date Description Comments Sex Unknown Tobacco Use Start: Unknown Never Smoked Cigarettes ETOH Use Consumes Wine 1-2 glass weekly Tobacco Use Start: Unknown Patient has never smoked Smoking Status Reviewed: 07/12/21 Patient has never smoked Exercise Type/Frequency Does yardwork daily patel y wood or pellets in 40 lbs bags as needed Exercise Type/Frequency Does yardwork sporadical ly shoveling snow as needed Exercise Type/Frequency Walks sporadically Exercise Type/Frequency Does housework sporadica lly Exercise Type/Frequency Does gardening twice a w [place] Exercise Type/Frequency Hiking occasion ally Exercise Limitations Shortness Of Breath on exer [...] 5'9" BMI (Body Mass Index) 28.5 kg/m2 Heart Rate 72 /min Regular Respiratory Rate 16 /min BP Systolic Right Arm 136 mmHg sitting, large cuf f BP Diastolic Right Arm 76 mmHg sitting, large cu ff BP Systolic Left Arm 136 mmHg sitting BP Diastolic Left Arm 74 mmHg sitting 12/29/2020 10:02am Weight 190.00 lb Height 69 [...] Date Facility Test Result H/L Range Note CBC 07/12/2021 [place] [address] [phone] WBC 6.7 K/mm3 4.0-10.0 RBC 4.57 M/mm3 4.50-6.00 HGB 14.3 gm/dL 14.0-18.0 HCT 41.4 % Low 42.0-54.0 MCV 90.6 fl 80-96 MCH 31.3 pg High 27.0-31.0 MCHC 34.5 g/dL 32.0-36.0 RDW 12.6 % 10.0-14.5 PLT 153 K/mm3 Low 172-450 Laboratory test finding 07/12/2021 [place] [address] [phone] B-Type Natriuretic Peptide 254 pg/mL High 0-125 Basic Metabolic Profile 07/12/2021 [place] [address] [phone] Glu 129 mg/dL High 74-106 BUN 20 mg/dL High 7-18 Cre 1.09 mg/dL 0.70-1.30 Na 141 mmol/L 136-145 K 5.0 mmol/L 3.5-5.1 CL 105 mmol/L 98-107 Co2 31 mmol/L 21-32 CA 8.8 mg/dL 8.5-10.1 Gap 5.0 mmol/L 5-12 GFR 67 mL/min 1 Comprehensive Metabolic Profil 03/27/2021 [facility] [phone] Glucose, Fasting 185 mg/dL High 70-100 Blood Urea Nitrogen 22 mg/dL High 7-18 Creatinine For GFR 0.96 mg/dL Normal 0.70-1.30 Glomerular Filtration Rate > 60.0 Normal >49 2 Sodium Level 134 mEq/L Low 136-145 Potassium [...] Ratio 1.2 Normal Complete Blood Count 03/27/2021 [facility] enter [phone] White Blood Count 4.7 10 Normal 4.0-10.0 [...] % Normal 0-0 Laboratory test finding 03/27/2021 [facility] [phone] Magnesium Level 2.4 mg/dL Normal 1.8-2.4 Lipid Panel 03/27/2021 [facility] nter [phone] Triglycerides Level 52 mg/dL Normal <150 Cholesterol Level 138 mg/dL Normal <200 HDL Cholesterol 76 mg/dL Normal >40 LDL Cholesterol 52 mg/dL Normal <100 Non-HDL-C 62 mg/dL Normal Cholesterol Risk Ratio 1.815 Normal <5 1 GFR IS CALCULATED IN mL/min/ 1.73m2 NORMAL FUNCTION: >90 MILDLY DECREASED: 60-89 MILDY TO MODERATELY DECREASED: 45-59 MODERATELY TO SEVERELY DECREASED: 30-44 SEVERELY DECREASED: 15-29 RENAL FAILURE: <15 2 Units are mL/min/1.73 m2 Chronic Kidney Disease Staging per NKF: Stage I & II GFR >=60 Normal to Mildly Decreased Stage III GFR 30-59 Moderately Decreased Stage IV GFR 15-29 Severely Decreased Stage V GFR <15 Very Little GFR Left ESRD GFR <15 on TEAM [employer]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 Procedures Date Code Description Status 07/12/2021 34332 Office/Outpatient Established Mo d MDM 30-39 Min Completed 07/12/2021 04391 ECG 12-Lead Completed Medical Devices Description No Information Available Encounters Type Date Location Provider Dx Diagnosis Office Visit 07/12/2021 10:45a Main Office KATERINA TrujilloC R06.0 2 Shortness of breath I10 Essential (primary) hyperten marlyn I48.3 Typical atrial flutter I35.8 Other nonrheumatic aortic va lve disorders I34.0 Nonrheumatic mitral (valve) insufficiency E78.00 Pure hypercholesterolemia, u nspecified I49.5 Sick sinus syndrome Z95.0 Presence of cardiac pacemake r Assessments Date Code Description Provider 07/12/2021 R06.02 Shortness of breath KATERINA BobC 07/12/2021 I10 Essential (primary) hypertension KEVON Trujillo-C 07/12/2021 I48.3 Typical atrial flutter KATERINA ReidC 07/12/2021 I35.8 Other nonrheumatic aortic valve disorders Beronica Gregorio PA-C 07/12/2021 I34.0 Nonrheumatic mitral (valve) insu fficiency KATERINA TrujilloC 07/12/2021 E78.00 Pure hypercholesterolemia, unspe cified Beronica Gregorio PA-C 07/12/2021 I49.5 Sick sinus syndrome KEVON Bob-C 07/12/2021 Z95.0 Presence of cardiac pacemaker Luz Marina Alexis PA-C Plan of Treatment Future Appointment(s):* 01/15/2022 10:15 am - Beronica Gregorio PA-C at Main Office * 10/05/2021 10:00 am - ECHO at Main Office 07/12/2021 - Beronica Gregorio PA-C* R06.02 Shortness of breath* New Labs:* Basic Metabolic Profile, Scheduled: 07/12/21 * Complete Blood Count, Scheduled: 07/12/21 * NT-Pro BNP, Scheduled: 07/12/21 * New Xrays:* PET Myocardial Perfusion Multi Study AT Rest And Stress, Scheduled: 07/12/21 * US Echocardiogram Transthoracic W Doppler And Color Flow, Scheduled: 07/12/21 * XR Chest 2 Views, Scheduled: 07/12/21 * Recommendations:* Do lab work and CXR today. * I10 Essential (primary) hypertension * I48.3 Typical atrial flutter * I35.8 Other nonrheumatic aortic valve disorders * I34.0 Nonrheumatic mitral (valve) insufficiency * E78.00 Pure hypercholesterolemia, unspecified * I49.5 Sick sinus syndrome * Z95.0 Presence of cardiac pacemaker * All * Follow up:* Wound check 1 week post generator change. 6 month follow up. Functional Status Functional Condition Comment Date Status Independent with all ADL's Activ e Mental Status Description No Information Available Referrals Description No Information Available
--- OUTSIDE RECORDS SUMMARY | 2021-07-19 11:50 | CCD | Continuity of Care Document ---
Author Author Ayaz KHOURY MD Organization Unknown Address [address] [place] [address], [address] [place] [address] Phone [phone] Care Team Providers Care Pct Name Role Phone Ronni Teran MD AUTM [phone] Sammy Ortiz MD AUTM Unavailable Elier Valencia DO AUTM [phone] Problems Active Problems Provider Date Type 1 diabetes mellitus uncontrolled Imani Khoury MD On set: 09/23/2011 Essential hypertension Imani Khoury MD Onset: 09/23/2011 Pure hypercholesterolemia Imani Khoury MD Onset: 012 Multiple complications due to diabetes mellitus Imani ruiz MD Onset: 09/23/2011 Vitamin D deficiency Imani Khoury MD Onset: 09/23/2011 Disorder of nervous system due to diabetes mellitus Imani Khoury MD Onset: 09/23/2011 Streptococcus Pneumonia & Influenz Vaccination & Inocu lation Imani Khoury MD Onset: 08/24/2012 Hypoglycemia Imani Khoury MD Onset: 08/24/2013 Disorder due to type 1 diabetes mellitus Imani Khoury MD Onset: 02/09/2015 Multiple complications due to type 1 diabetes mellitus Vinny Khoury MD Onset: 07/17/2015 Type 1 diabetes mellitus with diabetic polyneuropathy Rhiannon Khoury MD Onset: 07/17/2015 Gastroparesis syndrome Imani Khoury MD Onset: 01/22/2017 Cobalamin deficiency Imani Khoury MD Onset: 01/22/2017 Social History Type Date Description Comments Sex Unknown Cigarette Use denies cigarette use Tobacco Use Start: Unknown Patient has never smoked Smoking Status Reviewed: 11/20/20 Patient has never smoked Allergies, Adverse Reactions, Alerts Description No Known Drug Allergies Medications Active Medications SIG Qnty Indications Ordering Provide r Date Onetouch Ultra 2 w/Device Kit use as directed to check blood sugars 1units E11.65 Imani Khoury MD 05/29/2021 Desmopressin Acetate 0.1mg Tablets Take 1 & 1/2 Tablets By Mouth Once Daily 150tabs E10.65 Imani wills MD 03/26/2021 BD Pen Needle/Michelle/Ultra -Fine/32G X 4mm 32G X 4 mm Misc use as directed 4x daily with insulin e11.65 400units Sanjuanita Louis, GILL 08/10/2019 Onetouch Delica Lancets Fine 30G 3 0G Misc use as directed 7 times a day e10.42 300units E10.42 Sanjuanita hamilton, GILL 12/11/2018 Onetouch Ultra Strips Test 5 Times Daily 450units E10.42 Imani Khoury MD 06/02/2017 Toujeo Solostar 300U nit/ML Solution Pen-Inject Inject 28 Units Under The Skin Once Daily 4.5units E10.42 Sanjuanita Louis, GILL 12/28/2015 Novolog 100Unit/ML Solution use as directed per sliding scale maximum daily dose = 48 units lynne 50units E10.65 Imani Khoury MD 08/24/2013 Pregabalin 150mg Capsules 1 by mouth three times a day Unknown Amitriptyline HCL 75mg Tablets 1 po at bedtime Unknown Calcium 500mg Tablets 1 po da linda Unknown Vitamin D3 Maximum Strength 5000Unit Capsules 1 by mouth every day Unknown 000 Vitamin B 12 1po qd Unknown Omeprazole 20mg Capsules DR 1 by mouth every day Unknown Atorvastatin Calcium 10mg Tablets 1 by mouth every day E10.65 Unknown Aspirin 325mg Tablets 1 po qd Unknown Atenolol 50mg Tablets 1 po bi d Unknown Cozaar 50mg Tablets 1 by mout h daily Unknown Immunizations Description No Information Available Vital Signs Date Vital Result Comment 05/29/2021 10:26am BP Systolic 138 mmHg BP Diastolic 72 mmHg Heart Rate 70 /min Height 69 inches 5'9" Weight 194.50 lb BMI (Body Mass Index) 28.7 kg/m2 O2 % BldC Oximetry 98 % 11/20/2020 3:37pm BP Systolic 128 mmHg BP Diastolic 64 mmHg Heart Rate 76 /min Body Temperature 97.4 F Height 69 inches 5'9" Weight 186.31 lb BMI (Body Mass Index) 27.5 kg/m2 O2 % BldC Oximetry 98 % Results Test Acquired Date Facility Test Result H/L Range Note Laboratory test finding 05/29/2021 In House Glucose 126 Hemoglobin A1c 6.4 Procedures Date Code Description Status 05/29/2021 40491 Office/Outpatient Established Mo d MDM 30-39 Min Completed 05/28/2021 [id number] Diabetic Foot Exam Completed Medical Devices Description No Information Available Encounters Type Date Location Provider Dx Diagnosis Office Visit 05/29/2021 10:30a DR. Imani Khoury MD E 10.42 Type 1 diabetes mellitus with diabetic polyneuropathy E78.00 Pure hypercholesterolemia, u nspecified I10 Essential (primary) hyperten marlyn E55.9 Vitamin D deficiency, unspec ified R35.8 Other polyuria E10.40 Type 1 diabetes mellitus wit h diabetic neuropathy, unsp E83.51 Hypocalcemia Assessments Date Code Description Provider 05/29/2021 E10.42 Type 1 diabetes mellitus with di abetic polyneuropathy mIani Khoury MD 05/29/2021 E78.00 Pure hypercholesterolemia, unspe cified Imani Khoury MD 05/29/2021 I10 Essential (primary) hypertension Imani Khoury MD 05/29/2021 E55.9 Vitamin D deficiency, unspecifie d Imani Khoury MD 05/29/2021 R35.8 Other polyuria Imani Khoury MD 05/29/2021 E10.40 Type 1 diabetes russell itus with diabetic neuropathy, unspecified Imani Khoury MD 05/29/2021 E83.51 Hypocalcemia Imani Khoury MD Plan of Treatment Future Appointment(s):* 09/27/2021 9:45 am - Sanjuanita Louis NP at DR. Imani Khoury 05/29/2021 - Imani Khoury MD* E10.42 Type 1 diabetes mellitus with diabetic polyneuropathy* Comments:* 05/2021- in office A1c=6.4% 5.8% (5.9%, 6.5%, 6.3%, 6.5% ,6%, 6.1%, 7.0%, 6.7%, 7.7%, 6.3%, 6.8%)- Random MP=[id number] insulin doses: Toujeo 27 units Q AM - lowered to 25Novolog ss TID- breakfast- 0- usually doesn't eat. (bran in am , like 4 units) Lunch- 5-6 u, dinner- 4-6 units. in between correctionCorrection factor- 2 units for every 50 points above 100.Discussed taking Novolog 15 mins prior to meals. states patient does not give Novolog until after meals. Labs, 03/27/2021:LDL = 52, HDL = 76, triglycerides = 52Magnesium = 2.4Hemoglobin and hematocrit = 3018/41Creatinine = 0.9, EGFR >60Liver function normalNo microalbumin performed. Labs obtained off of [facility]. states that he feels his lows around 70. -Declines a continuous glucose monitor. * Follow up:* 4 months- sanjuanita with me * E78.00 Pure hypercholesterolemia, unspecified* Comments:* Goal for LDL <70 due to diabetes and CAD. On Atorvastatin 10 mg po qd.. Per #1, LDL is at goal 03/27/2021 * I10 Essential (primary) hypertension* Comments:* Controlled- Continue current therapy. * E55.9 Vitamin D deficiency, unspecified* Comments:* Currently taking Vit D 5000iu qd * R35.8 Other polyuria* Comments:* Pt was started on DDAVP in 09/2003 due to nocturia >4 times per night. Has remained on DDAVP 0.1mg 1 tabs dailyNo suggestion of DI- no polydipsia. Normal BMP 03/27/21: * E10.40 Type 1 diabetes mellitus with diabetic neuropathy, unspecified* Comments:* On pregabalin 150 mg BIDAlso on Amitriptyline 75 mg qhs. Symptoms are better * E83.51 Hypocalcemia* Comments:* labs done by PCP 12/15/17 noting calcium= 8.4Encouraged to start Calcium 600mg 1 tab BID which said he did after last visit. * All * New Medication:* Onetouch Ultra 2 w/Device - use as directed to check blood sugars Functional Status Description No Information Available Mental Status Description No Information Available Referrals Description No Information Available
--- OUTSIDE RECORDS SUMMARY | 2021-07-19 11:50 | CCD | Continuity of Care Document ---
Author Author Ayaz GREGORIO-C Organization Unknown Address [address] [place] [address], [place] [address] Phone [phone] Care Team Providers Care Cocktail Server Name Role Phone Ronni Teran MD AUTM [phone] Imani Ramachandran MD AUTM [phone] Jose Rodas MD AUTM [phone] Almita Looney-C AUTM [phone] Dwayne Wang MD AUTM [phone] Elier Valencia DO AUTM [phone] Problems Active Problems Provider Date Benign essential [...] Exercise Type/Frequency Does gardening twice a w pala Exercise Type/Frequency Hiking occasion ally Exercise Limitations [...] H/L Range Note Comprehensive Metabolic Profil 03/27/2021 [facility] [phone] Glucose, Fasting 185 mg/dL High 70-100 Blood [...] Ratio 1.2 Normal Complete Blood Count 03/27/2021 [facility] enter [phone] White Blood Count 4.7 10 Normal 4.0-10.0 [...] % Normal 0-0 Laboratory test finding 03/27/2021 [facility] [phone] Magnesium Level 2.4 mg/dL Normal 1.8-2.4 Lipid Panel 03/27/2021 [facility] nter [phone] Triglycerides Level 52 mg/dL Normal <150 Cholesterol [...] Little GFR Left ESRD GFR <15 on [employer] Procedures Date Code Description Status 07/12/2021 43833 Office/Outpatient Established Mo d MDM 30-39 Min Completed 07/12/2021 84578 ECG 12-Lead Completed Medical Devices Description No Information Available Encounters Type Date Location Provider Dx Diagnosis Office Visit 07/12/2021 10:45a Main Office Beronica Gregorio PA-C R06.0 2 Shortness of breath I10 Essential (primary) hyperten marlyn I48.3 Typical atrial flutter I35.8 Other nonrheumatic aortic va lve disorders I34.0 Nonrheumatic mitral (valve) insufficiency E78.00 Pure hypercholesterolemia, u nspecified I49.5 Sick sinus syndrome Z95.0 Presence of cardiac pacemake r Assessments Date Code Description Provider 07/12/2021 R06.02 Shortness of breath Beronica mcneil PA-C 07/12/2021 I10 Essential (primary) hypertension Beronica Gregorio PA-C 07/12/2021 I48.3 Typical atrial flutter Beronica castillo PA-C 07/12/2021 I35.8 Other nonrheumatic aortic valve disorders Beronica Gregorio PA-C 07/12/2021 I34.0 Nonrheumatic mitral (valve) insu fficiency Beronica Gregorio PA-C 07/12/2021 E78.00 Pure hypercholesterolemia, unspe cified Beronica Gregorio PA-C 07/12/2021 I49.5 Sick sinus syndrome Beronica mcneil PA-C 07/12/2021 Z95.0 Presence of cardiac pacemaker Luz [...]
--- OUTSIDE RECORDS SUMMARY | 2021-07-19 11:51 | CCD ---
Author Author [facility] Organization [facility] Address Unknown Phone Unavailable Care Team Providers Care Tactical Intelligence Officer Name Role Phone Karena Carranza Unavailable Unavailable Symenow, Karena Loco PA Unavailable Unavailable Symenow, Karena Loco PA Unavailable Unavailable Symenodonna, Karena Loco PA Unavailable Unavailable Symenow, Karena Loco PA Unavailable Unavailable Symenodonna, Karena Loco PA Unavailable Unavailable Symenow, Karena Loco PA Unavailable Unavailable Symenow, Karena Loco PA Unavailable Unavailable SymenoKarena thompson PA Unavailable Unavailable SymenoKarena thompson PA Unavailable Unavailable SymenoKarena thompson PA Unavailable Unavailable Symenodonna, Karena Loco PA Unavailable Unavailable Symenodonna, Karena Loco PA Unavailable Unavailable Symenodonna, Karena Loco PA Unavailable Unavailable Symenodonna, Karena Loco PA Unavailable Unavailable Symenodonna, Karena Loco PA Unavailable Unavailable Symenodonna, Karena Loco PA Unavailable Unavailable Symenodonna, Karena Loco PA Unavailable Unavailable Symenodonna, Karena Loco PA Unavailable Unavailable Symenodonna, Karena Loco PA Unavailable Unavailable Symenow, Karena Loco PA Unavailable Unavailable Symenodonna, Karena Loco PA Unavailable Unavailable Symenow, Karena Beronica PA Unavailable Unavailable Symenow, Karena Beronica PA Unavailable Unavailable Symenow, Karena Beronica PA Unavailable Unavailable Symenow, Karena Beronica PA Unavailable Unavailable Symenow, Karena Beronica PA Unavailable Unavailable Symenow, Karena Beronica PA Unavailable Unavailable Symenow, Karena Beronica PA Unavailable Unavailable Symenow, Karena Beronica PA Unavailable Unavailable Symenow, Karena Beronica PA Unavailable Unavailable Symenow, Karena Beronica PA Unavailable Unavailable Symenow, Karena Beronica PA Unavailable Unavailable Symenow, Karena Beronica PA Unavailable Unavailable AliDwayne MD Unavailable Unavailable AliDwayne MD Unavailable Unavailable AliDwayne MD Unavailable Unavailable AliDwayne MD Unavailable Unavailable Ali, Dwayne UREÑA Unavailable Unavailable Ali, Dwayne UREÑA Unavailable Unavailable AliDwayne MD Unavailable Unavailable AliDwayne MD Unavailable Unavailable AliDwayne MD Unavailable Unavailable AliDwayne MD Unavailable Unavailable Ali, Dwayne UREÑA Unavailable Unavailable Ali, Dwayne UREÑA Unavailable Unavailable Ali, Dwayne UREÑA Unavailable Unavailable Ali, Dwayne UREÑA Unavailable Unavailable Ali, Dwayne UREÑA Unavailable Unavailable AliDwayne MD Unavailable Unavailable Ali, Dwayne UREÑA Unavailable Unavailable AliDwayne MD Unavailable Unavailable AliDwayne MD Unavailable Unavailable AliDwayne MD Unavailable Unavailable AliDwayne MD Unavailable Unavailable AliDwayne MD Unavailable Unavailable Ali, Dwayne UREÑA Unavailable Unavailable AliDwayne MD Unavailable Unavailable AliDwayne MD Unavailable Unavailable AliDwayne MD Unavailable Unavailable AliDwayne MD Unavailable Unavailable Dwayne Wang MD Unavailable Unavailable AliDwayne MD Unavailable Unavailable AliDwayne MD Unavailable Unavailable AliDwayne MD Unavailable Unavailable AliDwayne MD Unavailable Unavailable AliDwayne MD Unavailable Unavailable AliDwayne MD Unavailable Unavailable AliDwayne MD Unavailable Unavailable AliDwayne MD Unavailable Unavailable AliDwayne MD Unavailable Unavailable Dwayne Wang MD Unavailable Unavailable Dwayne Wang MD Unavailable Unavailable AliDwayne MD Unavailable Unavailable AliDwayne MD Unavailable Unavailable AliDwayne MD Unavailable Unavailable AliDwayne MD Unavailable Unavailable Dwayne Wang MD Unavailable Unavailable Dwayne Wang MD Unavailable Unavailable Dwayne Wang MD Unavailable Unavailable Dwayne Wang MD Unavailable Unavailable AliDwayne MD Unavailable Unavailable AliDwayne MD Unavailable Unavailable AliDwayne MD Unavailable Unavailable Ali, Dwayne UREÑA Unavailable Unavailable ANGELINE, B NORMAN MOLYBDENUM STEAMER OPERATOR Unavailable Unavailable ANGELINE, B NORMAN MOLYBDENUM STEAMER OPERATOR Unavailable Unavailable ANGELINE, B NORMAN MOLYBDENUM STEAMER OPERATOR Unavailable Unavailable ANGELINE, B NORMAN MOLYBDENUM STEAMER OPERATOR Unavailable Unavailable ANGELINE, B NORMAN MOLYBDENUM STEAMER OPERATOR Unavailable Unavailable ANGELINE, B NORMAN MOLYBDENUM STEAMER OPERATOR Unavailable Unavailable ANGELINE, B NORMAN MOLYBDENUM STEAMER OPERATOR Unavailable Unavailable ANGELINE, B NORMAN MOLYBDENUM STEAMER OPERATOR Unavailable Unavailable ANGELINE, B NORMAN MOLYBDENUM STEAMER OPERATOR Unavailable Unavailable ANGELINE, B NORMAN MOLYBDENUM STEAMER OPERATOR Unavailable Unavailable ANGELINE, B NORMAN MOLYBDENUM STEAMER OPERATOR Unavailable Unavailable ANGELINE, B NORMAN MOLYBDENUM STEAMER OPERATOR Unavailable Unavailable ANGELINE, B NORMAN MOLYBDENUM STEAMER OPERATOR Unavailable Unavailable ANGELINE, B NORMAN MOLYBDENUM STEAMER OPERATOR Unavailable Unavailable ANGELINE, B NORMAN MOLYBDENUM STEAMER OPERATOR Unavailable Unavailable ANGELINE, B NORMAN MOLYBDENUM STEAMER OPERATOR Unavailable Unavailable ANGELINE, B NORMAN MOLYBDENUM STEAMER OPERATOR Unavailable Unavailable ANGELINE, B NORMAN MOLYBDENUM STEAMER OPERATOR Unavailable Unavailable ANGELINE, B NORMAN MOLYBDENUM STEAMER OPERATOR Unavailable Unavailable ANGELINE, B NORMAN MOLYBDENUM STEAMER OPERATOR Unavailable Unavailable ANGELINE, B NORMAN MOLYBDENUM STEAMER OPERATOR Unavailable Unavailable ANGELINE, B NORMAN MOLYBDENUM STEAMER OPERATOR Unavailable Unavailable ANGELINE, B NORMAN MOLYBDENUM STEAMER OPERATOR Unavailable Unavailable ANGELINE, B NORMAN MOLYBDENUM STEAMER OPERATOR Unavailable Unavailable ANGELINE, B NORMAN MOLYBDENUM STEAMER OPERATOR Unavailable Unavailable ANGELINE, B NORMAN MOLYBDENUM STEAMER OPERATOR Unavailable Unavailable ANGELINE, B NORMAN MOLYBDENUM STEAMER OPERATOR Unavailable Unavailable ANGELINE, B NORMAN MOLYBDENUM STEAMER OPERATOR Unavailable Unavailable ANGELINE, B NORMAN MOLYBDENUM STEAMER OPERATOR Unavailable Unavailable ANGELINE, B NORMAN MOLYBDENUM STEAMER OPERATOR Unavailable Unavailable ANGELINE, B NOMRAN MOLYBDENUM STEAMER OPERATOR Unavailable Unavailable ANGELINE, B NORMAN MOLYBDENUM STEAMER OPERATOR Unavailable Unavailable ANGELINE, B NORMAN MOLYBDENUM STEAMER OPERATOR Unavailable Unavailable ANGELINE, B NORMAN MOLYBDENUM STEAMER OPERATOR Unavailable Unavailable ANGELINE, B NORMAN MOLYBDENUM STEAMER OPERATOR Unavailable Unavailable ANGELINE, B NORMAN MOLYBDENUM STEAMER OPERATOR Unavailable Unavailable ANGELINE, B NORMAN MOLYBDENUM STEAMER OPERATOR Unavailable Unavailable ANGELINE, B NORMAN MOLYBDENUM STEAMER OPERATOR Unavailable Unavailable ANGELINE, B NORMAN MOLYBDENUM STEAMER OPERATOR Unavailable Unavailable ANGELINE, B NORMAN MOLYBDENUM STEAMER OPERATOR Unavailable Unavailable ANGELINE, B NORMAN MOLYBDENUM STEAMER OPERATOR Unavailable Unavailable ANGELINE, B NORMAN MOLYBDENUM STEAMER OPERATOR Unavailable Unavailable ANGELINE, B NORMAN MOLYBDENUM STEAMER OPERATOR Unavailable Unavailable ANGELINE, B NORMAN MOLYBDENUM STEAMER OPERATOR Unavailable Unavailable ANGELINE, B NORMAN MOLYBDENUM STEAMER OPERATOR Unavailable Unavailable ANGELINE, B NORMAN MOLYBDENUM STEAMER OPERATOR Unavailable Unavailable ANGELINE, B NORMAN MOLYBDENUM STEAMER OPERATOR Unavailable Unavailable ANGELINE, B NORMAN MOLYBDENUM STEAMER OPERATOR Unavailable Unavailable ANGELINE, B NORMAN MOLYBDENUM STEAMER OPERATOR Unavailable Unavailable ANGELINE, B NORMAN MOLYBDENUM STEAMER OPERATOR Unavailable Unavailable ANGELINE, B NORMAN MOLYBDENUM STEAMER OPERATOR Unavailable Unavailable ANGELINE, B NORMAN MOLYBDENUM STEAMER OPERATOR Unavailable Unavailable ANGELINE, B NORMAN MOLYBDENUM STEAMER OPERATOR Unavailable Unavailable ANGELINE, B NORMAN MOLYBDENUM STEAMER OPERATOR Unavailable Unavailable ANGELINE, B NORMAN MOLYBDENUM STEAMER OPERATOR Unavailable Unavailable ANGELINE, B NORMAN MOLYBDENUM STEAMER OPERATOR Unavailable Unavailable ANGELINE, B NORMAN MOLYBDENUM STEAMER OPERATOR Unavailable Unavailable ANGELINE, B NORMAN MOLYBDENUM STEAMER OPERATOR Unavailable Unavailable ANGELINE, B NORMAN MOLYBDENUM STEAMER OPERATOR Unavailable Unavailable ANGELINE, B NORMAN MOLYBDENUM STEAMER OPERATOR Unavailable Unavailable ANGELINE, B NORMAN MOLYBDENUM STEAMER OPERATOR Unavailable Unavailable ANGELINE, B NORMAN MOLYBDENUM STEAMER OPERATOR Unavailable Unavailable Fish, B Imani UREÑA Unavailable Unavailable Fish, Andrez Diallo MD Unavailable Unavailable Fish, B Imani UREÑA Unavailable Unavailable Fish, B Imani UREÑA Unavailable Unavailable Fish, B Imani UREÑA Unavailable Unavailable Fish, B Imani UREÑA Unavailable Unavailable Fish, B Imani UREÑA Unavailable Unavailable Fish, Andrez Diallo MD Unavailable Unavailable Fish, B Imani UREÑA Unavailable Unavailable Fish, Andrez Diallo MD Unavailable Unavailable Fish, B Imani UREÑA Unavailable Unavailable Fish, B Imani UREÑA Unavailable Unavailable Fish, B Imani UREÑA Unavailable Unavailable Fish, B Imani UREÑA Unavailable Unavailable Fish, Andrez Diallo MD Unavailable Unavailable Fish, Andrez Diallo MD Unavailable Unavailable Fish, Andrez Diallo MD Unavailable Unavailable Fish, Andrez Diallo MD Unavailable Unavailable Fish, B Imani UREÑA Unavailable Unavailable Fish, B Imani UREÑA Unavailable Unavailable Fish, B Imani UREÑA Unavailable Unavailable Fish, B Imani UREÑA Unavailable Unavailable Fish, Andrez Diallo MD Unavailable Unavailable Fish, B Imani UREÑA Unavailable Unavailable Fish, B Imani UREÑA Unavailable Unavailable Fish, Andrez Diallo MD Unavailable Unavailable Fish, B Imani UREÑA Unavailable Unavailable Fish, Andrez Diallo MD Unavailable Unavailable Fish, B Imani UREÑA Unavailable Unavailable Fish, Andrez Dilalo MD Unavailable Unavailable Fish, Andrez Diallo MD Unavailable Unavailable Fish, Andrez Diallo MD Unavailable Unavailable Fish, Andrez Diallo MD Unavailable Unavailable Fish, Andrez Diallo MD Unavailable Unavailable Fish, B Imani UREÑA Unavailable Unavailable Fish, Andrez Diallo MD Unavailable Unavailable Fish, B Imani UREÑA Unavailable Unavailable Fish, B Imani UREÑA Unavailable Unavailable Fish, B Imani UREÑA Unavailable Unavailable Fish, Andrez Diallo MD Unavailable Unavailable Fish, B Imani UREÑA Unavailable Unavailable Fish, B Imani UREÑA Unavailable Unavailable Fish, B Imani UREÑA Unavailable Unavailable Fish, B Imani UREÑA Unavailable Unavailable Fish, B Imani UREÑA Unavailable Unavailable Fish, B Imani UREÑA Unavailable Unavailable Fish, Andrez Diallo MD Unavailable Unavailable Fish, B Imani MD Unavailable Unavailable FishAndrez MD Unavailable Unavailable Fish B Imani UREÑA Unavailable Unavailable FishAndrez MD Unavailable Unavailable Fish B Imani UREÑA Unavailable Unavailable Fish, B Imani UREÑA Unavailable Unavailable Fish, Andrez Diallo MD Unavailable Unavailable Fish, Andrez Diallo MD Unavailable Unavailable Fish, Andrez Diallo MD Unavailable Unavailable Fish, B Imani UREÑA Unavailable Unavailable Fish, B Imani UREÑA Unavailable Unavailable Fish, B Imani UREÑA Unavailable Unavailable Fish, B Imani UREÑA Unavailable Unavailable Fish, B Imani UREÑA Unavailable Unavailable Fish, B Imani UREÑA Unavailable Unavailable Fish, B Imani UREÑA Unavailable Unavailable Fish B Imani UREÑA Unavailable Unavailable Fish B Imani UREÑA Unavailable Unavailable WetterhahnRonni MD Unavailable Unavailable WetterhahnRonni MD Unavailable Unavailable WetterhahnRonni MD Unavailable Unavailable WetterhahnRonni MD Unavailable Unavailable WetterhaRonni holm MD Unavailable Unavailable WetterhaRonni holm MD Unavailable Unavailable WetterhaRonni holm MD Unavailable Unavailable WetterhaRonni holm MD Unavailable Unavailable WetterhahnRonni MD Unavailable Unavailable WetterhahnRonni MD Unavailable Unavailable WetterhahnRonni MD Unavailable Unavailable WetterhaRonni holm MD Unavailable Unavailable WetterhaRonni holm MD Unavailable Unavailable WetterhaRonni holm MD Unavailable Unavailable WetterhahnRonni MD Unavailable Unavailable WetterhahnRonni MD Unavailable Unavailable WetterhahnRonni MD Unavailable Unavailable WetterhaRonni holm MD Unavailable Unavailable WetterhaRonni holm MD Unavailable Unavailable WetterhaRonni holm MD Unavailable Unavailable WetterhaRonni holm MD Unavailable Unavailable WetterhahnRonni MD Unavailable Unavailable WetterhahnRonni MD Unavailable Unavailable WetterhahnRonni MD Unavailable Unavailable WetterhahnRonni MD Unavailable Unavailable WetterhahnRonni MD Unavailable Unavailable WetterhahnRonni MD Unavailable Unavailable WetterhaRonni holm MD Unavailable Unavailable WetterhahnRonni MD Unavailable Unavailable WetterhahnRonni MD Unavailable Unavailable WetterhahnRonni MD Unavailable Unavailable WetterhahnRonni MD Unavailable Unavailable WetterhahnRonni MD Unavailable Unavailable WetterhahnRonni MD Unavailable Unavailable WetterhahnRonni MD Unavailable Unavailable WetterhahnRonni MD Unavailable Unavailable WetterhahnRonni MD Unavailable Unavailable WetterhahnRonni MD Unavailable Unavailable WetterhahnRonni MD Unavailable Unavailable Wetterhahn, Ronni MD Unavailable Unavailable Wetterhahn, Ronni MD Unavailable Unavailable Wetterhahn, Ronni MD Unavailable Unavailable Wetterhahn, Ronni MD Unavailable Unavailable Wetterhahn, Ronni MD Unavailable Unavailable Wetterhahn, Ronni MD Unavailable Unavailable Wetterhahn, Ronni MD Unavailable Unavailable Wetterhahn, Ronni MD Unavailable Unavailable Wetterhahn, Ronni MD Unavailable Unavailable Wetterhahn, Ronni MD Unavailable Unavailable Wetterhahn, Ronni MD Unavailable Unavailable Wetterhahn, Ronni MD Unavailable Unavailable Wetterhahn, Ronni MD Unavailable Unavailable Wetterhahn, Ronni MD Unavailable Unavailable Wetterhahn, Ronni MD Unavailable Unavailable Wetterhahn, Ronni MD Unavailable Unavailable Wetterhahn, Ronni MD Unavailable Unavailable Wetterhahn, Ronni MD Unavailable Unavailable Wetterhahn, Ronni MD Unavailable Unavailable Wetterhahn, Ronni MD Unavailable Unavailable Wetterhahn, Ronni MD Unavailable Unavailable Wetterhahn, Ronni MD Unavailable Unavailable Wetterhahn, Ronni MD Unavailable Unavailable Wetterhahn, Ronni MD Unavailable Unavailable Wetterhahn, Ronni MD Unavailable Unavailable Wetterhahn, Ronni MD Unavailable Unavailable Wetterhahn, Ronni MD Unavailable Unavailable Wetterhahn, Ronni MD Unavailable Unavailable Wetterhahn, Ronni MD Unavailable Unavailable Wetterhahn, Ronni MD Unavailable Unavailable Wetterhahn, Ronni MD Unavailable Unavailable Wetterhahn, Ronni MD Unavailable Unavailable Wetterhahn, Ronni MD Unavailable Unavailable Re-disclosure Warning The records that you are about to access may contain information from federally-assisted alcohol or drug abuse programs. If such information is present, then the following federally mandated warning applies: This information has been disclosed to you from records protected by federal confidentiality rules (42 CFR part 2). The federal rules prohibit you from making any further disclosure of this information unless further disclosure is expressly permitted by the written consent of the person to whom it pertains or as otherwise permitted by 42 CFR part 2. A general authorization for the release of medical or other information is NOT sufficient for this purpose. The Federal rules restrict any use of the information to criminally investigate or prosecute any alcohol or drug abuse patient.The records that you are about to access may contain highly sensitive health information, the redisclosure of which is protected by Article 27-F of the [place] State Public Health law. If you continue you may have access to information: Regarding HIV / AIDS; Provided by facilities licensed or operated by the [facility] Office of Mental Health; or Provided by the [facility] Office for People With Developmental Disabilities. If such information is present, then the following [facility] mandated warning applies: This information has been disclosed to you from confidential records which are protected by state law. State law prohibits you from making any further disclosure of this information without the specific written consent of the person to whom it pertains, or as otherwise permitted by law. Any unauthorized further disclosure in violation of state law may result in a fine or chcf sentence or both. A general authorization for the release of medical or other information is NOT sufficient authorization for further disc losure. Family History Family Member Name Family Member Gender Family Member Status Date o f Status Description Data Source(s) Unknown Unknown Problem [facility] ([facility] Unknown Unknown Problem [facility] Unknown Unknown Problem [facility] ([facility]) Encounters Encounter Providers Location Date Indications Data Source(s ) Outpatient Attender: Beronica VARGASeferrer: Murphy Teran MD EMERGENCY ROOM-LAB NOT ORDERED BY [facility] 07/12/2021 02:33:00 PM EDT - 07/12/2021 02:33:00 PM EDT [facility] Outpatient Attender: Beronica LUND Main Office 07/12/2021 10:45:00 AM EDT MEDENT ([facility]) Unknown [address] [id number] 06/28/2021 12:00:00 AM EDT eCW1 ([facility]) Outpatient Attender: Imani Ramachandran MD Physical Therapy 05/29 10:30:00 AM EDT MEDENT ([facility]) Outpatient [address] [facility] [place] [address] 04/27/2021 12:00:00 AM EDT eCW1 ([facility]) Unknown [address] [facility] [place] [address] 04/13/2021 12:00:00 AM EDT eCW1 ([facility]) Outpatient Attender: Dwayne Wang MD Main office - [place] 03/09/2021 09:15:00 AM EDT MEDENT ([facility]) Outpatient Attender: Beronica LUND Main Office 12/29/2020 10:15:00 AM EDT [facility] ([facility]) [place] [address] [facility] [address] 12/21/2020 12:00:00 AM EDT eCW1 ([facility]) Unknown [address] [facility] [facility] [place] [address] 12/13/2020 12:00:00 AM EDT eCW1 ([facility]) Outpatient Attender: Dwayne Wang MD Main office - [place] 12/08/2020 10:15:00 AM EDT MEDENT ([facility]) Outpatient Attender: NORMAN MARCUS NP Physical Therapy 02:45:00 PM EST MEDENT ([facility]) [place] [address] [facility] [address] 09/19/2020 12:00:00 AM EST eCW1 ([facility]) Outpatient Attender: Imani Ramachandran MD Physical Therapy 07/31 09:45:00 AM EST MEDENT ([facility]) [place] [address] [facility] [address] 07/27/2020 12:00:00 AM EST eCW1 ([facility]) Outpatient Attender: Dwayne Wang MD Main office - [place] 07/25/2020 11:15:00 AM EST MEDENT ([facility]) Unknown [address] [facility] [place] [address] 06/19/2020 12:00:00 AM EDT eCW1 ([facility]) Immunizations Vaccine Date Status Description Data Source(s) pneumococcal polysaccharide PPV23 04/27/2021 09:55:00 AM EDT comple leon eCW1 ([facility]) pneumococcal polysaccharide PPV23 04/27/2021 09:55:00 AM EDT comple leon eCW1 ([facility]) Moderna #2 dose COVID-19 (given elsewhere) SARSCOV2 VA C 100MCG/0.5ML IM 01/11/2021 09:41:00 AM EDT completed eCW1 ([facility]) Moderna #2 dose COVID-19(given elsewhere) SARSCOV2 VAC 100MCG/0.5ML IM 01/11/2021 09:41:00 AM EDT completed eCW1 ([facility]) Moderna #1 dose COVID-19 (given elsewhere) SARSCOV2 VA C 100MCG/0.5ML IM 12/14/2020 09:40:00 AM EDT completed eCW1 ([facility]) Moderna #1 dose COVID-19(given elsewhere) SARSCOV2 VAC 100MCG/0.5ML IM 12/14/2020 09:40:00 AM EDT completed eCW1 ([facility]) COVID-19 VACCINE Moderna 11/03/2020 12:00:00 AM EST completed [facility] Vaccine Series Complete: YESThis Data wa s Submitted to [facility] Via [employer]. COVID-19 VACCINE, MRNA-1273, LNP-S (MODERNA)/PF 11/03/2020 1 2:00:00 AM EST completed [facility] COVID-19 VACCINE, MRNA-1273, LNP-S (MODERNA)/PF 10/09/2020 1 2:00:00 AM EST completed [facility] COVID-19 VACCINE Moderna 10/09/2020 12:00:00 AM EST completed [facility] Vaccine Series Complete: NOThis Data was Submitted to [facility] Via [employer]. INFLUENZA VIRUS VACCINE QUADRIVALENT 2019- (6 MOS AN D UP) 07/08/2020 12:00:00 AM EDT completed [facility] Medications Medication Brand Name Start Date Product Form Dose Route Admi nistrative Instructions Pharmacy Instructions Status Indications Reaction Description Data Source(s) 100 unit/mL 07/16/2021 12:00:00 AM EDT solution 50 USE DIRECTED PER SLIDING SCALE MAXIMUM DAILY DOSE = 48 UNITS USE DIRECTED PER SLIDING SCALE MAXIMUM DAILY DOSE = 48 UNITS SOLD: 07/17/2021 [facility] 60 mcg (15 mcg x 4)/0.5 mL 07/12/2021 12:00:00 AM EDT syring e 0 INJECT DIRECTED PER STANDING ORDER INJECT DIRECTED PER STANDING ORDER SOLD: 07/12/2021 [facility] Amitriptyline Hydrochloride 50 MG Oral Tablet Amitriptyline HCL 07/11/2021 12:00:00 AM EDT ORAL active M EDENT ([facility]) 50 mg 06/28/2021 12:00:00 AM EDT tablet 180 TAKE ONE TABLET BY MOUTH TWICE A DAY TAKE ONE TABLET BY MOUTH TWICE A DAY SOLD: 07/05/2021 [facility] 20 mg 06/28/2021 12:00:00 AM EDT capsule,delayed release (DR/EC) 90 TAKE ONE CAPSULE BY MOUTH EVERY DAY TAKE ONE CAPSULE BY MOUTH EVERY DAY SOLD: 07/05/2021 [facility] BLOOD-GLUCOSE METER 05/30/2021 12:00:00 AM EDT misc 1 USE DIRECTED TO CHECK BLOOD SUGARS USE DIRECTED TO CHECK BLOOD SUGARS SOLD: 06/01/2021 [facility] Onetouch Ultra 2 05/29/2021 12:00:00 AM EDT a ctive MEDENT ([facility] 20 mg 04/13/2021 12:00:00 AM EDT capsule,delayed release (DR/EC) 90 TAKE ONE CAPSULE BY MOUTH EVERY DAY TAKE ONE CAPSULE BY MOUTH EVERY DAY SOLD: 04/16/2021 [facility] 50 mg 03/27/2021 12:00:00 AM EDT tablet 180 TAKE ONE TABLET BY MOUTH TWICE A DAY TAKE ONE TABLET BY MOUTH TWICE A DAY SOLD: 06/28/2021 [facility] 50 mg 03/27/2021 12:00:00 AM EDT tablet 180 TAKE ONE TABLET BY MOUTH TWICE A DAY TAKE ONE TABLET BY MOUTH TWICE A DAY SOLD: 04/03/2021 [facility] Losartan Potassium 50 MG Oral Tablet [Cozaar] Cozaar 12:00:00 AM EDT ORAL active MEDENT ( [facility]) Desmopressin Acetate 0.1 MG Oral Tablet DESMOPRESSIN ACETATE 03/27/2021 12:00:00 AM EDT tablet 135 TAKE ONE AND ONE -HALF TABLETS BY MOUTH EVERY DAY MAXIMUM DAILY DOSE = 1 & 1/2 TABLETS TAKE ONE AND ONE-HALF TABLETS BY MOUTH E DAY MAXIMUM DAILY DOSE = 1 & 1/2 TABLETS SOLD: 04/03/2021 [facility] Desmopressin Acetate 0.1 MG Oral Tablet Desmopressin Acetate 03/26/2021 12:00:00 AM EDT active MEDENT ([facility] ) BLOOD SUGAR DIAGNOSTIC 03/12/2021 12:00:00 AM EDT strip 450 TEST 5 TIMES DAILY TEST 5 TIMES DAILY SOLD: 06/14/2021 [facility] 50 mg 03/12/2021 12:00:00 AM EDT tablet 180 TAKE ONE TABLET BY MOUTH TWICE A DAY TAKE ONE TABLET BY MOUTH TWICE A DAY SOLD: 03/13/2021 [facility] BLOOD SUGAR DIAGNOSTIC 03/12/2021 12:00:00 AM EDT strip 450 TEST 5 TIMES DAILY TEST 5 TIMES DAILY SOLD: 03/13/2021 [facility] 150 mg 03/09/2021 12:00:00 AM EDT capsule 270 TAKE 1 CAPSULE BY MOUTH 3 TIMES A DAY(9AM, 3PM AND AND 1 HOUR BEFORE BED), MAX OF 3 PER DAY TAKE 1 CAPSULE BY MOUTH 3 TIMES A DAY(9AM, 3PM AND AND 1 HOUR BEFORE BED), MAX OF 3 PER DAY SOLD: 06/14/2021 [facility] 50 mg 03/09/2021 12:00:00 AM EDT tablet 90 TAKE ONE TABLET BY MOUTH EVERY NIGHT AT BEDTIME TAKE ONE TABLET BY MOUTH EVERY NIGHT AT BEDTIME SOLD: 06/14/2021 [facility] 150 mg 03/09/2021 12:00:00 AM EDT capsule 270 TAKE 1 CAPSULE BY MOUTH 3 TIMES A DAY(9AM, 3PM AND AND 1 HOUR BEFORE BED), MAX OF 3 PER DAY TAKE 1 CAPSULE BY MOUTH 3 TIMES A DAY(9AM, 3PM AND AND 1 HOUR BEFORE BED), MAX OF 3 PER DAY SOLD: 03/13/2021 [facility] 50 mg 03/09/2021 12:00:00 AM EDT tablet 90 TAKE ONE TABLET BY MOUTH EVERY NIGHT AT BEDTIME TAKE ONE TABLET BY MOUTH EVERY NIGHT AT BEDTIME SOLD: 03/13/2021 [facility] Amitriptyline Hydrochloride 50 MG Oral Tablet Amitriptyline HCL 03/09/2021 12:00:00 AM EDT ORAL active M EDENT ([facility], ) 1.5 ML Insulin Glargine 300 UNT/ML Pen Injector [Touje o] 300 unit/mL (1.5 mL) INSULIN GLARGINE,HUM.REC.ANLOG 02/19/2021 12:00:00 AM EDT insulin pen 4 INJECT 28 UNITS UNDER THE SKIN DAILY INJECT 28 UNITS UNDER THE SKIN DAILY SOLD: 04/03/2021 [facility] 1.5 ML Insulin Glargine 300 UNT/ML Pen Injector [Touje o] 300 unit/mL (1.5 mL) INSULIN GLARGINE,HUM.REC.ANLOG 02/19/2021 12:00:00 AM EDT insulin pen 4 INJECT 28 UNITS UNDER THE SKIN DAILY INJECT 28 UNITS UNDER THE SKIN DAILY SOLD: 02/22/2021 [facility] 1.5 ML Insulin Glargine 300 UNT/ML Pen Injector [Touje o] 300 unit/mL (1.5 mL) INSULIN GLARGINE,HUM.REC.ANLOG 02/19/2021 12:00:00 AM EDT insulin pen 4 INJECT 28 UNITS UNDER THE SKIN DAILY INJECT 28 UNITS UNDER THE SKIN DAILY SOLD: 06/01/2021 [facility] 150 mg 01/03/2021 12:00:00 AM EDT capsule 90 TAKE ONE CAPSULE BY MOUTH THREE TIMES A DAY 9AM, 3PM AND ONE-HOUR BEFORE BEDTIME MAX=3/DAY TAKE ONE CAPSULE BY MOUTH THREE TIMES A DAY 9AM, 3PM AND ONE-HOUR BEFORE BEDTIME MAX=3/DAY SOLD: 01/04/2021 [facility] 150 mg 01/03/2021 12:00:00 AM EDT capsule 90 TAKE ONE CAPSULE BY MOUTH THREE TIMES A DAY 9AM, 3PM AND ONE-HOUR BEFORE BEDTIME MAX=3/DAY TAKE ONE CAPSULE BY MOUTH THREE TIMES A DAY 9AM, 3PM AND ONE-HOUR BEFORE BEDTIME MAX=3/DAY SOLD: 02/09/2021 [facility] 75 mg 01/01/2021 12:00:00 AM EDT tablet 30 TAKE ONE TABLET BY MOUTH AT BEDTIME TAKE ONE TABLET BY MOUTH AT BEDTIME SOLD: 02/09/2021 [facility] 75 mg 01/01/2021 12:00:00 AM EDT tablet 30 TAKE ONE TABLET BY MOUTH AT BEDTIME TAKE ONE TABLET BY MOUTH AT BEDTIME SOLD: 01/02/2021 [facility] Amitriptyline Hydrochloride 75 MG Oral Tablet Amitriptyline HCL 12/28/2020 12:00:00 AM EDT ORAL active M EDENT ([facility]) pregabalin 150 MG Oral Capsule Pregabalin 12/28/2020 12:00:00 AM EDT ORAL active [facility] ([facility]) 20 mg 12/21/2020 12:00:00 AM EDT capsule,delayed release (DR/EC) 90 TAKE ONE CAPSULE BY MOUTH EVERY DAY TAKE ONE CAPSULE BY MOUTH EVERY DAY SOLD: 01/02/2021 [facility] BLOOD SUGAR DIAGNOSTIC 12/04/2020 12:00:00 AM EDT strip 450 TEST 5 TIMES DAILY TEST 5 TIMES DAILY SOLD: 12/05/2020 [facility] 75 mg 12/04/2020 12:00:00 AM EDT tablet 30 TAKE ONE TABLET BY MOUTH AT BEDTIME TAKE ONE TABLET BY MOUTH AT BEDTIME SOLD: 12/05/2020 [facility] 150 mg 12/04/2020 12:00:00 AM EDT capsule 60 TAKE ONE CAPSULE BY MOUTH TWICE A DAY MAXIMUM DAILY DOSE = 2 TAKE ONE CAPSULE BY MOUTH TWICE A DAY PRAFUL RACHEL DAILY DOSE = 2 SOLD: 12/05/2020 [facility] 500 mg 11/30/2020 12:00:00 AM EDT capsule 21 TAKE ONE CAPSULE BY MOUTH THREE TIMES A DAY UNTIL GONE TAKE ONE CAPSULE BY MOUTH THREE TIMES A DAY UNTIL GONE SOLD: 11/30/2020 [facility] 75 mg 11/03/2020 12:00:00 AM EST tablet 30 TAKE ONE TABLET BY MOUTH AT BEDTIME TAKE ONE TABLET BY MOUTH AT BEDTIME SOLD: 11/03/2020 [facility] atorvastatin 10 MG Oral Tablet ATORVASTATIN CALCIUM 09/20/2020 1 2:00:00 AM EST tablet 90 TAKE ONE TABLET BY MOUTH EVERY D AY TAKE ONE TABLET BY MOUTH EVERY DAY SOLD: 06/01/2021 [facility] atorvastatin 10 MG Oral Tablet ATORVASTATIN CALCIUM 09/20/2020 1 2:00:00 AM EST tablet 90 TAKE ONE TABLET BY MOUTH EVERY D AY TAKE ONE TABLET BY MOUTH EVERY DAY SOLD: 12/21/2020 [facility] atorvastatin 10 MG Oral Tablet ATORVASTATIN CALCIUM 09/20/2020 1 2:00:00 AM EST tablet 90 TAKE ONE TABLET BY MOUTH EVERY D AY TAKE ONE TABLET BY MOUTH EVERY DAY SOLD: 03/13/2021 [facility] atorvastatin 10 MG Oral Tablet ATORVASTATIN CALCIUM 09/20/2020 1 2:00:00 AM EST tablet 90 TAKE ONE TABLET BY MOUTH EVERY D AY TAKE ONE TABLET BY MOUTH EVERY DAY SOLD: 09/23/2020 [facility] 500 mg 09/12/2020 12:00:00 AM EST capsule 21 TAKE ONE CAPSULE BY MOUTH THREE TIMES A DAY UNTIL GONE TAKE ONE CAPSULE BY MOUTH THREE TIMES A DAY UNTIL GONE SOLD: 09/12/2020 [facility] BLOOD SUGAR DIAGNOSTIC 08/30/2020 12:00:00 AM EST strip 450 TEST FIVE TIMES A DAY MAXIMUM DAILY DOSE = 5 TEST FIVE TIMES A DAY MAXIMUM DAILY DOSE = 5 SOLD: 09/01/2020 [facility] 100 unit/mL 08/28/2020 12:00:00 AM EST solution 50 USE DIRECTED PER SLIDING SCALE MAXIMUM DAILY DOSE = 48 UNITS USE DIRECTED PER SLIDING SCALE MAXIMUM DAILY DOSE = 48 UNITS SOLD: 08/29/2020 [facility] 0.1 mg 08/02/2020 12:00:00 AM EST tablet 135 TAKE 1 & 1/2 TABLETS BY MOUTH ONCE DAILY TAKE 1 & 1/2 TABLETS BY MOUTH ONCE DAILY SOLD: 08/08/2020 [facility] Desmopressin Acetate 0.1 MG Oral Tablet DESMOPRESSIN ACETATE 08/02/2020 12:00:00 AM EST tablet 135 TAKE 1 & 1/2 TABLETS BY MOUT H ONCE DAILY TAKE 1 & 1/2 TABLETS BY MOUTH ONCE DAILY SOLD: 12/21/2020 [facility] 1.5 ML Insulin Glargine 300 UNT/ML Pen Injector [Touje o] 300 unit/mL (1.5 mL) INSULIN GLARGINE,HUM.REC.ANLOG 07/27/2020 12:00:00 AM EST insulin pen 4 INJECT 28 UNITS UNDER THE SKIN ONCE DAILY INJECT 28 UNITS UNDER THE SKIN ONCE DAILY SOLD: 01/02/2021 [facility] 300 unit/mL (1.5 mL) 07/27/2020 12:00:00 AM EST insulin pen 4 INJECT 28 UNITS UNDER THE SKIN ONCE DAILY INJECT 28 UNITS UNDER THE SKIN ONCE DAILY SOLD: 11/03/2020 [facility] 300 unit/mL (1.5 mL) 07/27/2020 12:00:00 AM EST insulin pen 4 INJECT 28 UNITS UNDER THE SKIN ONCE DAILY INJECT 28 UNITS UNDER THE SKIN ONCE DAILY SOLD: 07/28/2020 [facility] 300 unit/mL (1.5 mL) 07/27/2020 12:00:00 AM EST insulin pen 4 INJECT 28 UNITS UNDER THE SKIN ONCE DAILY INJECT 28 UNITS UNDER THE SKIN ONCE DAILY SOLD: 09/20/2020 [facility] 75 mg 07/27/2020 12:00:00 AM EST tablet 30 TAKE ONE TABLET BY MOUTH AT BEDTIME MAXIMUM DAILY DOSE = 1 TAKE ONE TABLET BY MOUTH AT BEDTIME MAXI MUM DAILY DOSE = 1 SOLD: 09/05/2020 [facility] 75 mg 07/27/2020 12:00:00 AM EST tablet 30 TAKE ONE TABLET BY MOUTH AT BEDTIME MAXIMUM DAILY DOSE = 1 TAKE ONE TABLET BY MOUTH AT BEDTIME MAXI MUM DAILY DOSE = 1 SOLD: 10/02/2020 [facility] 75 mg 07/27/2020 12:00:00 AM EST tablet 30 TAKE ONE TABLET BY MOUTH AT BEDTIME MAXIMUM DAILY DOSE = 1 TAKE ONE TABLET BY MOUTH AT BEDTIME MAXI MUM DAILY DOSE = 1 SOLD: 07/28/2020 [facility] pregabalin 150 MG Oral Capsule Pregabalin 07/25/2020 12:00:00 AM EST ORAL active [facility] ([facility], ) 150 mg 07/25/2020 12:00:00 AM EST capsule 60 TAKE 1 CAPSULE BY MOUTH AT BEDTIME FOR 1 WEEK THEN 1 CAPSULE BY MOUTH TWO TIMES A DAY MAXIMUM DAILY DOSE = 2 CAPSULES TAKE 1 CAPSULE BY MOUTH AT BEDTIME FOR 1 WEEK THEN 1 CAPSULE BY MOUTH TWO TIMES A DAY MAXIMUM DAILY DOSE = 2 CAPSULES SOLD: 10/05/2020 [facility] 150 mg 07/25/2020 12:00:00 AM EST capsule 60 TAKE 1 CAPSULE BY MOUTH AT BEDTIME FOR 1 WEEK THEN 1 CAPSULE BY MOUTH TWO TIMES A DAY MAXIMUM DAILY DOSE = 2 CAPSULES TAKE 1 CAPSULE BY MOUTH AT BEDTIME FOR 1 WEEK THEN 1 CAPSULE BY MOUTH TWO TIMES A DAY MAXIMUM DAILY DOSE = 2 CAPSULES SOLD: 07/28/2020 [facility] 150 mg 07/25/2020 12:00:00 AM EST capsule 60 TAKE 1 CAPSULE BY MOUTH AT BEDTIME FOR 1 WEEK THEN 1 CAPSULE BY MOUTH TWO TIMES A DAY MAXIMUM DAILY DOSE = 2 CAPSULES TAKE 1 CAPSULE BY MOUTH AT BEDTIME FOR 1 WEEK THEN 1 CAPSULE BY MOUTH TWO TIMES A DAY MAXIMUM DAILY DOSE = 2 CAPSULES SOLD: 09/05/2020 [facility] 150 mg 07/25/2020 12:00:00 AM EST capsule 60 TAKE 1 CAPSULE BY MOUTH AT BEDTIME FOR 1 WEEK THEN 1 CAPSULE BY MOUTH TWO TIMES A DAY MAXIMUM DAILY DOSE = 2 CAPSULES TAKE 1 CAPSULE BY MOUTH AT BEDTIME FOR 1 WEEK THEN 1 CAPSULE BY MOUTH TWO TIMES A DAY MAXIMUM DAILY DOSE = 2 CAPSULES SOLD: 11/03/2020 [facility] 600 mg 07/03/2020 12:00:00 AM EDT tablet 90 TAKE ONE TABLET BY MOUTH THREE TIMES A DAY MAX=3TABS/DAY TAKE ONE TABLET BY MOUTH THREE TIMES A D AY MAX=3TABS/DAY SOLD: 07/04/2020 [facility] 75 mg 07/03/2020 12:00:00 AM EDT tablet 30 TAKE ONE TABLET BY MOUTH AT BEDTIME MAX=1TAB/DAY TAKE ONE TABLET BY MOUTH AT BEDTIME MAX=1TAB/DAY SOLD: 07/04/2020 [facility] 75 mg 03/23/2020 12:00:00 AM EDT tablet 30 TAKE ONE TABLET BY MOUTH AT BEDTIME TAKE ONE TABLET BY MOUTH AT BEDTIME SOLD: 06/04/2020 [facility] Atenolol 50 MG Oral Tablet ATENOLOL 03/21/2020 12:00:00 AM EDT tablet 180 TAKE ONE TABLET BY MOUTH TWICE A DAY TAKE ONE TABLET BY MOUTH TWICE A DAY SOLD: 06/16/2020 [facility] Atenolol 50 MG Oral Tablet ATENOLOL 03/21/2020 12:00:00 AM EDT tablet 180 TAKE ONE TABLET BY MOUTH TWICE A DAY TAKE ONE TABLET BY MOUTH TWICE A DAY SOLD: 12/05/2020 [facility] 20 mg 03/21/2020 12:00:00 AM EDT capsule,delayed release (DR/EC) 90 TAKE ONE CAPSULE BY MOUTH EVERY DAY TAKE ONE CAPSULE BY MOUTH EVERY DAY SOLD: 07/28/2020 [facility] Atenolol 50 MG Oral Tablet ATENOLOL 03/21/2020 12:00:00 AM EDT tablet 180 TAKE ONE TABLET BY MOUTH TWICE A DAY TAKE ONE TABLET BY MOUTH TWICE A DAY SOLD: 08/25/2020 [facility] 50 mg 02/26/2020 12:00:00 AM EDT tablet 180 TAKE ONE TABLET BY MOUTH TWICE A DAY TAKE ONE TABLET BY MOUTH TWICE A DAY SOLD: 08/25/2020 [facility] 50 mg 02/26/2020 12:00:00 AM EDT tablet 180 TAKE ONE TABLET BY MOUTH TWICE A DAY TAKE ONE TABLET BY MOUTH TWICE A DAY SOLD: 06/16/2020 [facility] 50 mg 02/26/2020 12:00:00 AM EDT tablet 180 TAKE ONE TABLET BY MOUTH TWICE A DAY TAKE ONE TABLET BY MOUTH TWICE A DAY SOLD: 12/05/2020 [facility] gabapentin 600 MG Oral Tablet Gabapentin 02/15/2020 12:00:00 AM EDT ORAL completed [facility] ([facility] 5 mg 10/25/2019 12:00:00 AM EST tablet 90 TAKE ONE TABLET BY MOUTH EVERY DAY NEEDED TAKE ONE TABLET BY MOUTH EVERY DAY NEEDED SOLD: 07/28/2020 [facility] 300 unit/mL (1.5 mL) 09/09/2019 12:00:00 AM EST insulin pen 4 INJECT 28 UNITS ONCE DAILY INJECT 28 UNITS ONCE DAILY SOLD: 06/04/2020 [facility] atorvastatin 10 MG Oral Tablet ATORVASTATIN CALCIUM 09/05/2019 1 2:00:00 AM EST tablet 90 TAKE ONE TABLET BY MOUTH EVERY D AY TAKE ONE TABLET BY MOUTH EVERY DAY SOLD: 06/16/2020 [facility] Insurance Providers Payer name Policy type / Coverage type Policy ID Covered democrat ID Covered democrat's relationship to nolan Policy [facility] [id number] Self [id number] [place] [facility] [id number] Self [id number] [place] [facility] [id number] Self [id number] [place] [facility] [id number] Self [id number] [facility] Commercial [id number] Self [place] [facility] Medigap Part B [id number] Self [id number] [facility] Part B [id number] Self [id number] [facility] [id number] SP [id number] [facility] [id number] SP [id number] [facility] EMIGDIO DIV [id number] SP [id number] [facility] DIV [id number] SP [id number] [facility] [id number] SP [id number] MEDICARE [id number] SP [id number] [place] Medicare [place] Medicare Primary [id number] Self [id number] [place] Medigap Part B [id number] Self [id number] [place] Medigap Part B [id number] Self [id number] [place] Medigap Part B [id number] Self [id number] [place] Medigap Part B [id number] Self [id number] Medicare [place] Medicare Primary [id number] Self [id number] Medicare [place] Medicare Primary [id number] Self 0 [id number] Medicare [place] Medicare Primary [id number] Self [id number] Medicare [place] Medicare Primary [id number] Self [id number] Medicare (Part B) Medicare Primary [id number] Self [id number] ANSI-Medicare Part B [id number] ANSI-Commercial [id number] [facility] Part B [id number] Self [id number] MEDICARE [id number] SP [id number] A Medicare (Part B) Medicare Primary [id number] ..[id number] [facility] Part B [id number] Self [id number] [facility] Part B [id number] Self [id number] Medicare Natl Gov't Servi Medicare Primary [id number] ..[id number] [facility] Part B [id number] Self [id number] [facility] Part B [id number] Self [id number] Medicare [place] Medicare Primary [id number] Self [id number] Medicare (Part B) Medicare Primary [id number] Self [id number] Medicare Natl Gov't Servi Medigap Part B [id number] Self [id number] [facility] [place] Commercial [id number] Self [id number] [place] [facility] Health Maintenance Organization (HMO) [id number] Self [id number] [place] [facility] Health Maintenance Organization (HMO) [id number] Self [id number] [employer] O [id number] S [id number] UNITED [employer] [id number] SP [id number] [employer] EMIGDIO DIV [id number] SP [id number] [place] [facility] Health Maintenance Organization (HMO) [id number] Self [place] [facility] Medigap Part B [id number] Self [id number] [employer] E[employer]IRE EMIGDIO DIV [id number] SP [id number] UNITED HEALTHCARE [id number] SP [id number] MEDICARE [id number] SP [id number] [employer] EMPIRE EMIGDIO DIV UNITED HEALTHCARE [id number] SP [id number] UNITED HEALTHCARE [id number] S [id number] MEDICARE - [place] [id number] S [id number] [employer] MEDICARE DIVISION [id number] S [id number] BCBS EMPIRE [id number] S [id number] Medicare (Part B) Medicare Primary [id number] Self [id number] [facility] Part B [id number] Self [id number] Medicare (Part B) Medicare Primary [id number] [address] [id number] [facility] Part B [id number] Self [id number] ANS-Medicare Part B [id number] ANSI-Commercial [id number] MEDICARE [place] [id number] S [id number] [facility] [id number] S [id number] [facility] [id number] S [id number] ANSI-Commercial [id number] ANS-Medicare Part B [id number] Medicare (Part B) Medicare Primary [id number] 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 sleep Problem 07/25/2020 12:00:00 AM EST [facility] ([facility], ) Surgeries/Procedures Procedure Description Date Indications Data Source(s) ECG ROUTINE ECG W/LEAST 12 LDS W/I&R 07/12/2021 12:00: 00 AM EDT [facility] ([facility]) OFFICE OUTPATIENT VISIT 25 MINUTES 07/12/2021 12:00:00 AM EDT [facility] ([facility]) OFFICE OUTPATIENT VISIT 25 MINUTES 05/29/2021 12:00:00 AM EDT [facility] ([facility] ) Diabetic Foot Exam 05/28/2021 12:00:00 AM EDT [facility] ([facility] ) PNEUMOCOCCAL POLYSAC VACCINE 23-V 2 />YR SUBQ/IM 04/27 12:00:00 AM EDT eC ([facility]) OFFICE OUTPATIENT VISIT 15 MINUTES 03/09/2021 12:00:00 AM EDT [facility] ([facility], ) ECG ROUTINE ECG W/LEAST 12 LDS W/I&R 12/29/2020 12:00: 00 AM EDT [facility] ([facility]) INTERROGATION 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 FINDINGS: There is a 1.5 cm mass in the left lower lobe warranting a CT scan of the chestfor further evaluation. Heart is normal in size. There is no pneumonia oreffusion. Dual-lead left-sided pacer device is seen. IMPRESSION: Left lower lobe mass should be further evaluated with a CT scan of the chestpreferably with intravenous contrast. Electronically signed in [id number] by: Kathleen Oliver M.D. 07/12/2021 15:06 EDT Name Value Range Interpretation Code Description [facility] Supporting Document(s) ID Date Data Source [id number] 07/12/2021 02:40:00 PM EDT [facility] ([facility]) Name Value Range Interpretation Code Description Data Renuka rce(s) Supporting Document(s) Glu 129 mg/dL 74-106 [facility] Na 141 mmol/L 136-145 [facility] ([facility]) BUN 20 mg/dL 7-18 [facility] Cre 1.09 mg/dL 0.70-1.30 [facility] ([facility]) Co2 31 mmol/L 21-32 [facility] CL 105 mmol/L 98-107 [facility] ([facility]) K 5.0 mmol/L 3.5-5.1 [facility] ([facility]) CA 8.8 mg/dL 8.5-10.1 [facility] Gap 5.0 mmol/L 5-12 [facility] ([facility]) GFR 67 mL/min [facility]) <content>GFR IS CALCULATED IN mL/min/1.73m2</content>
<content></content>
<content>NORMAL FUNCTION: >90</content>
<content>MILDLY DECREASED: 60-89</content>
<content>MILDY TO MODERATELY DECREASED: 45-59</content>
<content>MODERATELY TO SEVERELY DECREASED: 30-44</content>
<content>SEVERELY DECREASED: 15- 29</content>
<content>RENAL FAILURE: <15</content>
<content></content> ID Date Data Source [id number] 07/12/2021 02:40:00 PM EDT [facility] Name Value Range Interpretation Code Description Data Renuka rce(s) Supporting Document(s) B-Type Natriuretic Peptide 254 pg/mL 0-125 [facility] ([facility]) ID Date Data Source [id number] 07/12/2021 02:40:00 PM EDT [facility] Name Value Range Interpretation Code Description Data Renuka rce(s) Supporting Document(s) WBC 6.7 K/mm3 4.0-10.0 [facility] RBC 4.57 M/mm3 4.50-6.00 [facility] ([facility]) HGB 14.3 gm/dL 14.0-18.0 [facility] ([facility]) HCT 41.4 % 42.0-54.0 [facility] MCV 90.6 fl 80-96 [facility] MCH 31.3 pg 27.0-31.0 [facility] MCHC 34.5 g/dL 32.0-36.0 [facility] PLT 153 K/mm3 172-450 [facility] RDW 12.6 % 10.0-14.5 [facility] ID Date Data Source [id number] 07/12/2021 03:36:00 PM EDT [facility] Name Value Range Interpretation Code Description Data Renuka rce(s) Supporting Document(s) B-TYPE NATRIURETIC PEPTIDE 254 pg/ml 0-125 [facility] ID Date Data Source [id number] 07/12/2021 03:36:00 PM EDT [facility] Name Value Range Interpretation Code Description Data Renuka rce(s) Supporting Document(s) GLUCOSE 129 mg/dL 74-106 [facility] BLOOD UREA NITROGEN 20 mg/dL 7-18 H [facility] ital CREATININE 1.09 mg/dl 0.70-1.30 [facility] SODIUM 141 mmol/L 136-145 [facility] POTASSIUM 5.0 mmol/L 3.5-5.1 [facility] CHLORIDE 105 mmol/L 98-107 [facility] CO2 31 mmol/L 21-32 [facility] CALCIUM 8.8 mg/dL 8.5-10.1 [facility] ANION GAP 5.0 mmol/L 5-12 [facility] GLOMERULAR FILTRATION RATE 67 mL/min [facility] GFR IS CALCULATED IN mL/min/1.73m2 CONNIE L FUNCTION: >90MILDLY DECREASED: 60-89MILDY TO MODERATELY DECREASED: 45-59 MODERATELY TO SEVERELY DECREASED: 30-44SEVERELY DECREASED: 15-29RENAL FAILURE: <15 ID Date Data Source [id number] 07/12/2021 02:46:00 PM EDT [facility] Name Value Range Interpretation Code Description Data Renuka rce(s) Supporting Document(s) WHITE BLOOD COUNT 6.7 K/mm3 4.0-10.0 [facility] al RED BLOOD COUNT 4.57 M/mm3 4.50-6.00 [facility] HEMOGLOBIN 14.3 gm/dL 14.0-18.0 [facility] HEMATOCRIT 41.4 % 42.0-54.0 [facility] MEAN CELL VOLUME 90.6 fl 80-96 [facility] MEAN CORPUSCULAR HEMOGLOBIN 31.3 pg 27.0-31.0 [facility] MEAN CORPUSCULAR HGB CONC 34.5 g/dl 32.0-36.0 [facility] RED CELL DISTRIBUTION WIDTH 12.6 % 10.0-14.5 [facility] PLATELET COUNT 153 K/mm3 172-450 [facility] ID Date Data Source [id number] 05/29/2021 10:35:00 AM EDT [facility] ([facility]) Name Value Range Interpretation Code Description Data Renuka rce(s) Supporting Document(s) Glucose [Mass/volume] in Serum or Plasma 126 [facility] ([facility]) Hemoglobin A1c/Hemoglobin.total in Blood 6.4 [facility] ([facility]) ID Date Data Source [id number] 03/27/2021 09:14:00 AM EDT [facility] ([facility] Name Value Range Interpretation Code Description Data Renuka rce(s) Supporting Document(s) Triglycerides Level 52 mg/dL [facility] ([facility]) Cholesterol Level 138 mg/dL [facility] HDL Cholesterol 76 mg/dL [facility] LDL Cholesterol 52 mg/dL [facility]) Cholesterol Risk Ratio 1.815 [facility] ([facility]) Non-HDL-C 62 mg/dL [facility] ID Date Data Source [id number] 03/27/2021 09:14:00 AM EDT [facility] ([facility]) Name Value Range Interpretation Code Description Data Renuka rce(s) Supporting Document(s) Magnesium [Mass/volume] in Serum or Plasma 2.4 mg/dL 1.8-2.4 [facility] ([facility]) ID Date Data Source [id number] 03/27/2021 09:14:00 AM EDT [facility] ([facility] Name Value Range Interpretation Code Description Data Renuka rce(s) Supporting Document(s) White Blood Count 4.7 10 4.0-10.0 [facility] Red Blood Count 4.46 10 4.30-6.10 [facility] Hemoglobin 13.9 g/dL 13.5-17.5 [facility] ([facility]) Hematocrit 41.4 % 42.0-52.0 [facility] ([facility]) Mean Corpuscular Volume 92.8 fl 80.0-96.0 M EDENT ([facility]) Mean Corpuscular Hemoglobin 31.2 pg 27.0-33.0 [facility] ([facility]) Mean Corpuscular HGB Conc 33.6 g/dL 32.0-36.5 [facility] ([facility]) Red Cell Distribution Width 11.9 % 11.5-14.5 [facility] ([facility]) Platelet Count, Automated 140 10 150-450 [facility] ([facility]) Nucleated Red Blood Cell % 0.0 % 0-0 MED ENT ([facility]) ID Date Data Source [id number] 03/27/2021 09:14:00 AM EDT [facility] ([facility]) Name Value Range Interpretation Code Description Data Renuka rce(s) Supporting Document(s) Glucose, Fasting 185 mg/dL 70-100 [facility] ([facility]) Blood Urea Nitrogen 22 mg/dL 7-18 [facility] ([facility]) Creatinine For GFR 0.96 mg/dL 0.70-1.30 [facility] ([facility]) Glomerular Filtration Rate Laboratory test result [facility] ([facility]) <content>Units are mL/min/1.73 m2</content>
<content></content>
<content>Chronic Kidney Disease Staging per NKF:</content>
<content></content>
<content>Stage I & II GFR >=60 Normal to Mildly Decreased</content>
<content>Stage III GFR 30- 59 Moderately Decreased</content>
<content>Stage IV GFR 15-29 Severely Decreased</content>
<content>Stage V GFR <15 Very Little GFR Left</content>
<content>ESRD GFR <15 on CELL INSPECTOR</content>
<content></content> Sodium Level 134 meq/L 136-145 [facility] ([facility]) Chloride Level 102 meq/L 98-107 [facility] ([facility]) Potassium Serum 5.5 meq/L 3.5-5.1 [facility] ([facility]) Carbon Dioxide Level 29 meq/L 21-32 [facility] ([facility]) Anion Gap 3 meq/L 8-16 [facility] Calcium Level 8.2 mg/dL 8.8-10.2 [facility] ([facility]) Alt/SGPT 35 U/L 12-78 [facility] Ast/Sgot 29 U/L 7-37 [facility] Alkaline Phosphatase 67 U/L 45-117 [facility] ([facility]) Bilirubin,Total 0.5 mg/dL 0.2-1.0 [facility] ([facility]) Total Protein 6.7 GM/DL 6.4-8.2 [facility] ([facility]) Albumin 3.6 GM/DL 3.2-5.2 [facility] Albumin/Globulin Ratio 1.2 [facility] ([facility]) ID Date Data Source [id number] 11/20/2020 03:49:00 PM EST [facility] ([facility] ) Name Value Range Interpretation Code Description Data Renuka rce(s) Supporting Document(s) Glucose [Mass/volume] in Serum or Plasma 71 [facility] ([facility]) Hemoglobin A1c/Hemoglobin.total in Blood 5.8 [facility] ([facility] ) ID Date Data Source [id number] 07/31/2020 10:59:00 AM EST [facility] ([facility] ) Name Value Range Interpretation Code Description Data Renuka rce(s) Supporting Document(s) Creatinine [Mass/volume] in Urine 22.8 mg/dL [facility] ([facility]) Microalbumin/Creatinine [Mass Ratio] in Urine 21.9 MCG/MG 0.0-30.0 [facility] ([facility]) THE [employer] STATES THAT MICROALBUMINURIA IS PRESENT IF THE MICROALBUMIN/CREATININE RATIO EXCEEDS 30 MCG/MG. THE THRESHOLD FOR CLINICAL ALBUMINURIA IS REACHED AT 300 MCG/MG. THE CLASSIFICATION OF A PATIENT SHOULD BE BASED UPON AT LEAST 2 OF 3 ABNORMAL RESULTS ON SPECIMENS COLLECTED WITHIN A 3 TO 6 MONTH TIME FRAME. Microalbumin [Mass/volume] in Urine Laboratory test result [facility] ([facility]) ID Date Data Source [id number] 07/31/2020 10:51:00 AM EST [facility] ([facility] ) Name Value Range Interpretation Code Description Data Renuka rce(s) Supporting Document(s) Hemoglobin A1c/Hemoglobin.total in Blood 5.9 [facility] ([facility] ) Glucose [Mass/volume] in Serum or Plasma 146 [facility] ([facility] ) ID Date Data Source [id number] 06/01/2020 03:54:00 PM EDT [facility] ([facility]) Name Value Range Interpretation Code Description Data Renuka rce(s) Supporting Document(s) Calcium [Mass/volume] in Serum or Plasma 8.7 [facility] ([facility]) Sodium 137 [facility] Chloride [Moles/volume] in Serum or Plasma 102 [facility] ([facility]) Carbon dioxide, total [Moles/volume] in Serum or Plasma 30 [facility] ([facility]) Potassium [Moles/volume] in Serum or Plasma 4.8 [facility] ([facility]) Glucose 76 70-100 [facility] Blood Urea Nitrogen 16 7-18 [facility] ([facility]) Creatinine 0.96 0.70-1.30 [facility] ([facility]) Glomerular filtration rate/1.73 sq M.pre dicted [Volume Rate/Area] in Serum or Plasma by Creatinine-based formula (MDRD) Laboratory test result [facility] ([facility]) Procedure Social History Code Duration Value Status Description Data Source(s ) Smoking 07/12/2021 12:00:00 AM EDT Patient has never smoked co mpleted Patient has never smoked [facility] ([facility]) Smoking 04/27/2021 12:00:00 AM EDT Never Smoker completed Never S moker eCW1 ([facility]) Smoking 04/27/2021 12:00:00 AM EDT Never Smoker completed Never S moker eCW1 ([facility]) Smoking 11/20/2020 12:00:00 AM EST Patient has never smoked co mpleted Patient has never smoked [facility] ([facility]) Vital Signs ID Date Data Source UNK Name Value Range Interpretation Code Description Data Source(s) Body weight 193.00 [lb_av] 193.00 [lb_av] MEDEN T ([facility]) Body height 69 [in_i] 69 [in_i] [facility] ([facility]) 5'9" Body mass index (BMI) [Ratio] 28.5 kg/m2 28.5 k g/m2 [facility] ([facility]) Heart rate 72 /min 72 /min [facility] ([facility]) Regular Respiratory rate 16 /min 16 /min [facility] ( [facility]) Systolic blood pressure 136 mm[Hg] 136 mm[Hg] M EDENT ([facility]) sitting, large cuff Diastolic blood pressure 76 mm[Hg] 76 mm[Hg] [facility] ([facility]) sitting, large cuff Systolic blood pressure 136 mm[Hg] 136 mm[Hg] M EDENT ([facility]) sitting Diastolic blood pressure 74 mm[Hg] 74 mm[Hg] [facility] ([facility]) sitting Oxygen saturation in Arterial blood by Pulse oximetry 98 % 98 % [facility] ([facility]) Systolic blood pressure 138 mm[Hg] 138 mm[Hg] M EDENT ([facility]) Diastolic blood pressure 72 mm[Hg] 72 mm[Hg] [facility] ([facility]) Heart rate 70 /min 70 /min [facility] ([facility]) Body height 69 [in_i] 69 [in_i] [facility] ([facility]) 5'9" Body weight 194.50 [lb_av] 194.50 [lb_av] MEDEN T ([facility]) Body mass index (BMI) [Ratio] 28.7 kg/m2 28.7 k g/m2 [facility] ([facility]) Body weight 197 [lb_av] 197 [lb_av] eCW1 ([facility]) Body weight 89.36 kg 89.36 kg eCW1 ([facility]) Body height 69 [in_i] 69 [in_i] eCW1 ([facility]) Body mass index (BMI) [Ratio] 29.09 kg/m2 29.09 kg/m2 eCW1 ([facility]) Heart rate 70 /min 70 /min eCW1 ([facility]) Respiratory rate 16 /min 16 /min eCW1 ([facility]) Body temperature 97.9 [degF] 97.9 [degF] eCW1 ( [facility]) Systolic blood pressure 163 mm[Hg] 163 mm[Hg] e CW1 ([facility]) Diastolic blood pressure 90 mm[Hg] 90 mm[Hg] eCW1 ([facility]) Systolic blood pressure 126 mm[Hg] 126 mm[Hg] M EDENT ([facility]) sitting, regular cuff Diastolic blood pressure 74 mm[Hg] 74 mm[Hg] MED[facility] ([facility]) sitting, regular cuff Systolic blood pressure 124 mm[Hg] 124 mm[Hg] M EDENT ([facility]) sitting Body weight 190.00 [lb_av] 190.00 [lb_av] MEDEN T ([facility]) Body height 69 [in_i] 69 [in_i] [facility] ([facility]) 5'9" Body mass index (BMI) [Ratio] 28.1 kg/m2 28.1 k g/m2 [facility] ([facility]) Heart rate 72 /min 72 /min [facility] ([facility]) Regular Respiratory rate 16 /min 16 /min MED[facility] ( [facility]) Diastolic blood pressure 74 mm[Hg] 74 mm[Hg] MED[facility] ([facility]) sitting Systolic blood pressure 128 mm[Hg] 128 mm[Hg] M EDENT ([facility] ) Diastolic blood pressure 64 mm[Hg] 64 mm[Hg] MED[facility] ([facility] ) Heart rate 76 /min 76 /min [facility] ([facility] ) Body temperature 97.4 [degF] 97.4 [degF] MED[facility] ([facility] ) Body height 69 [in_i] 69 [in_i] MED[facility] ([facility] ) 5'9" Body weight 186.31 [lb_av] 186.31 [lb_av] MEDEN T ([facility] ) Body mass index (BMI) [Ratio] 27.5 kg/m2 27.5 k g/m2 MED[facility] ([facility] ) Oxygen saturation in Arterial blood by Pulse oximetry 98 % 98 % [facility] ([facility] ) Body temperature 97.1 [degF] 97.1 [degF] [facility] ([facility] ) Body weight 184.31 [lb_av] 184.31 [lb_av] MEDEN T ([facility] ) Body mass index (BMI) [Ratio] 27.2 kg/m2 27.2 k g/m2 [facility] ([facility] ) Diastolic blood pressure 70 mm[Hg] 70 mm[Hg] MED[facility] ([facility] ) Heart rate 68 /min 68 /min AIDA ([facility] ) Body height 69 [in_i] 69 [in_i] AIDA ([facility] ) 5'9" Oxygen saturation in Arterial blood by Pulse oximetry 97 % 97 % AIDA ([facility] ) Systolic blood pressure 140 mm[Hg] 140 mm[Hg] M PERLA ([facility] )
[2021-07-19] MEDS ORDERED: LIDOCAINE 1% SDV 30ML VIAL As Ordered ONE (12:42)
[2021-07-19] MEDS ORDERED: ISOVUE-300 61% 50ML VIAL As Ordered ONE (12:42)
[2021-07-19] MEDS ORDERED: ceFAZolin 1GM VIAL (J0690 PER 500MG) As Ordered ONE (12:43)
[2021-07-19] MEDS ORDERED: AMIODARONE 150MG/3ML INJ (J0282) As Ordered ONE (12:44)
[2021-07-19] MEDS ORDERED: fentaNYL 100 MCG/2 ML INJECTION (J3010) As Ordered ONE (13:14)
[2021-07-19] MEDS ORDERED: propofoL 500 MG/50 ML VIAL As Ordered ONE (13:14)
[2021-07-19] MEDS ORDERED: MIDAZOLAM INJ 2MG/2ML VIAL (J2250 PER 1MG) As Ordered ONE (13:14)
[2021-07-19] MEDS ORDERED: ONDANSETRON 4MG/2ML VIAL As Ordered ONE (13:15)
[2021-07-19] MEDS ORDERED: LIDOCAINE 2% 100MG/5ML SDV (FOR ANES.) As Ordered ONE (13:15)
[2021-07-19] MEDS ORDERED: dexameTHASONE 4 MG/ML 1ML VIAL (J1100 PER 1MG) As Ordered ONE (13:15)
[2021-07-19] MEDS ORDERED: ACETAMINOPHEN 1000MG 100ML IV BTL (OFIRMEV) (J0131 PER 10MG) As Ordered ONE (14:53)
[2021-07-19] MEDS ORDERED: propofoL 200 MG/20 ML VIAL As Ordered ONE (15:05)
[2021-07-19] MEDS ORDERED: BACITRACIN OINTMENT 30GM TUBE As Ordered ONE (15:12)
[2021-07-19 16:20] VITALS: BP 152/88
--- NOTE | 2021-07-19 18:34 | RO ---
OPERATIVE NOTE DATE OF OPERATION: 07/19/2021 PREOPERATIVE DIAGNOSIS: 1. Pacemaker battery depletion. 2. Sinus node dysfunction tachybrady syndrome. 3. Paroxysmal atrial flutter. POSTOPERATIVE DIAGNOSIS: 1. Pacemaker battery depletion. 2. Sinus node dysfunction tachybrady syndrome. 3. Paroxysmal atrial flutter. PROCEDURE: 1. Explantation of depleted pacemaker pulse generator. 2. Testing of old atrial and ventricular pacing leads. 3. Implantation of new dual-chamber pulse generator. IMPLANTING COMPONENT LAB TECH: Aldair Parry M.D. BANQUET KITCHEN SUPERVISOR: ANESTHESIOLOGIST: Dr. Funk ANESTHESIA: Monitored local anesthesia. CLINICAL SUMMARY: This is a 71-year-old, father of two, retired resident of [place], [place]. He is well known to my cardiology practice having hypertensive heart disease complicated by mild mitral insufficiency (nonrheumatic), LV diastolic dysfunction and mild pulmonary hypertension. January 30, 1999, a dual-chamber pacemaker was implanted for markedly slow heart rates on negative chronotropic therapy for paroxysmal atrial fibrillation. January 16, 2012, he underwent successful pulse generator battery replacement. He has been followed on a regular basis through our office and has been feeling quite well, tolerating yard work and carrying wood up to 40 lb ultimately limited by shortness of breath. Other than a single episode of chest tightness, he has been free of chest pain with prior pharmacological stress heart scan showing normal myocardial perfusion, no evidence of ischemia. He denies other cardiovascular complaints. Recently found to have his pacemaker showing the elective replacement indicator so his current surgery was scheduled. Overweight, stocky late middle-aged male lying comfortably. Heart rate 72 BPM, blood pressure 136/76, respiratory rate 16, BMI 28.5. No pallor or cyanosis. Trachea midline Neck veins were 4 cm above the sternal angle. Somewhat increased anterior-posterior chest diameter with well healed pacemaker incision, left lateral subclavian region. Good air entry over both lung tony with no adventitious sounds. Apical impulse was not palpable. Heart sounds were fairly normal with S4 gallop and soft systolic ejection murmur along the left sternal border but no apical systolic murmur. No diastolic murmur. Normal carotid upstrokes and volume with no bruits. 1-2 mm pitting edema of his ankles, less than 1 mm pitting mid-tibial level. Peripheral pulses were normal. Soft abdomen. EKG, July 12, 2021 showed consistent atrially paced rhythm at 70 BPM with a fusion, QRS complexes with pacing spikes prior to each beat with complexes that were clearly at least partially spontaneous AV conduction. Slow precordial R-wave progression with nonspecific inferoapical ST scooping, unchanged from December,. Last blood work showed a normal complete count with hemoglobin 13.9, normal white blood cell count. Electrolytes were in balance with BUN 22, creatinine 0.96, fasting glucose 185. DESCRIPTION OF PROCEDURE: Following informed consent with the patient in the fasting state having received Ancef 2 gm IV premedication, the patient was taken to the operating theater. Numerous skin electrodes were applied to facilitate continuous electrocardiographic monitoring. Self-adhesive cardioverting/defibrillating pads were applied in an anteroposterior configuration and connected to a bedside cardioverter defibrillator/noninvasive pacing system. The left subclavian region was prepped and draped in the usual fashion and the skin over his old pacemaker incision was infiltrated with 1% Xylocaine. Careful dissection was then performed. Unfortunately, his pulse generator had migrated down behind his anterior axillary fold, at least 4 inches below the incision line, since it was implanted in 2011. His pacing leads were also coiled on top of his device. We had to carefully dissect behind these and his device. This added considerably more difficulty and required extra time to safely remove the depleted pulse generator without damaging his old pacing leads. We even used fluoroscopy to assist with visualization of his pacing leads. His depleted pulse generator was ultimately explanted ([employer], model number [id number], serial number [id number] implanted January 16, 2012). His old atrial and ventricular pacing leads were then disconnect from the depleted pacemaker and tested independently. His ventricular lead ([employer], model number 1388T/58, serial number [id number] implanted January 30, 1999). Measurements were focal and simulation thresholds 0.75 V/0.4 ms/impedance 240 ohms. The R wave amplitude measured 4.9 mV. The old atrial lead ([employer], model number 1388T/52, serial number [id number] implanted January 30, 1999) measurements were focal and stimulation thresholds 0.75 V/0.4 ms/impedance 340 ohms. The P wave amplitude measured 2.3 mV. These old pacing leads were then connected to a new rate-responsive dual-chamber pulse generator - [facility], model number [id number], serial number [id number]) and appropriate DDD pacing was documented. The rate response feature will be activated in the recovery room. At this point, his old pacer pocket was thoroughly irrigated with an Ancef solution. The new pulse generator was placed, the pocket secured in position with a suture through the upper right-hand corner of the Epoxy header. This should prevent it from migrating as his last device had. His subcutaneous tissues were approximated using a running Chromic suture and the skin was closed using kris. A dry dressing was applied and the patient was returned to the recovery room in good condition. COMPLICATIONS: No apparent complications other than the increased difficulty of the procedure itself. ESTIMATED BLOOD LOSS: Approximately 50 ml. The patient will be allowed to go home once he is awake and tolerating fluids. He will resume his customary no added salt, low carbohydrate diet. We have requested that he perform any light activities of daily living with his left arm until his kris are removed in my office. We will also request that he keep his incision dry. His medications will resume: Atenolol 50 mg b.i.d., Cozaar 50 mg daily, aspirin 325 mg daily, atorvastatin 40 mg q.h.s., Multivitamin one tablet daily, vitamin B12 250 mcg daily, Toujeo SoloStar 300 units per mL as per sliding scale as directed, NovoLog insulin 100 units per mL per sliding scale, DDAVP 0.1 mg tablets, 1-1/2 tablets daily and pregabalin 150 mg tablets, two tablets daily with amitriptyline 50 mg q.h.s. We requested that he contact us should he have any abnormal swelling, redness or discharge. He will be seen for a clinic visit - wound check and stable removal appointment in my office July 31, 2021 at 9:30 a.m. Aldair Garcia MD, [facility]
== END 2021-07-19 16:40 | disposition home or self-care (01) ==
LOC: M SDC 11:45
PROVIDERS: ATTEND Internal Medicine Cardiovascular Disease
DX: Z45.010 Encounter for checking and testing of cardiac pacemaker pulse generator [battery] (principal); I49.5 Sick sinus syndrome; I48.3 Typical atrial flutter; R06.02 Shortness of breath; I11.9 Hypertensive heart disease without heart failure; I35.8 Other nonrheumatic aortic valve disorders; I34.0 Nonrheumatic mitral (valve) insufficiency; E78.00 Pure hypercholesterolemia, unspecified; E10.40 Type 1 diabetes mellitus with diabetic neuropathy, unspecified; J30.1 Allergic rhinitis due to pollen; M19.90 Unspecified osteoarthritis, unspecified site; R06.83 Snoring; R35.1 Nocturia; Z79.899 Other long term (current) drug therapy; Z79.82 Long term (current) use of aspirin; Z79.4 Long term (current) use of insulin
CPT/HCPCS: 33228; 76000; C1785; J0131; J0690; J1100; J2250; J2405; J3010

== ENCOUNTER → 2022-03-07 | Outpatient (REF) | payer MEDICARE, BC, OTHER ==
[~2022-03-07] MED LIST changes: +LOSA50TA28 PO; -LOSA50TA88 PO; -LR 1,000 ML IV ONE; -ceFAZolin SOD 2 GM in IV 1 EA IV ONE
[2022-03-07 16:14] LABS: CREATININE, URINE 50.4 MG/DL; MAU/CREAT RATIO 277.7 MCG/MG (0.0-30.0)
== END ==
LOC: M LAB REF 15:14
PROVIDERS: ATTEND Nurse Practitioner Family
DX: E10.42 Type 1 diabetes mellitus with diabetic polyneuropathy (principal)

== ENCOUNTER → 2022-03-12 | Outpatient (REF) | payer MEDICARE, OTHER ==
[~2022-03-12] MED LIST changes: +CEPH500C; +ELIQ5TAB PO; +FLEC25TA; +FURO20TA2; +LASI40TA9 PO; +NORV5TAB PO
[2022-03-12 17:50] LABS: BASO % 0.4 % (0.0-1.0); EOS # 0.1 10^3/uL (0.0-0.5); EOS % 1.7 % (0.0-3.0); HEMATOCRIT 38.6 % (42.0-52.0); HEMOGLOBIN 12.7 g/dl (13.5-17.5); LYMPH # 1.1 10^3/uL (1.5-5.0); LYMPH % 13.1 % (24.0-44.0); MEAN CORPUSCULAR HEMOGLOBIN 32.2 pg (27.0-33.0); MEAN CORPUSCULAR HGB CONC 32.9 g/dl (32.0-36.5); MEAN CORPUSCULAR VOLUME 97.7 fl (80.0-96.0); MONO # 0.7 10^3/uL (0.0-0.8); MONO % 8.3 % (2.0-8.0); NEUTROPHILS # 6.3 10^3/uL (1.5-8.5); PLATELET COUNT, AUTOMATED 119 10^3/uL (150-450); RED BLOOD COUNT 3.95 10^6/uL (4.30-6.10); WHITE BLOOD COUNT 8.3 10^3/uL (4.0-10.0)
[2022-03-12 18:17] LABS: ALBUMIN 3.6 GM/DL (3.2-5.2); ALT/SGPT 60 U/L (12-78); BILIRUBIN,TOTAL 0.5 MG/DL (0.2-1.0); BLOOD UREA NITROGEN 27 MG/DL (7-18); CALCIUM LEVEL 8.6 MG/DL (8.8-10.2); CARBON DIOXIDE LEVEL 28 MEQ/L (21-32); CHLORIDE LEVEL 109 MEQ/L (98-107); CHOLESTEROL LEVEL 120 MG/DL (<200); CREATININE FOR GFR 1.36 MG/DL (0.70-1.30); FREE T4 0.88 NG/DL (0.76-1.46); GLOMERULAR FILTRATION RATE 55.3 (>49); GLUCOSE, FASTING 160 MG/DL (70-100); HDL CHOLESTEROL 71 MG/DL (>40); IRON (FE) 68 UG/DL (65-175); LDL CHOLESTEROL 41 MG/DL (<100); NON-HDL-C 49 MG/DL; POTASSIUM SERUM 4.9 MEQ/L (3.5-5.1); SODIUM LEVEL 141 MEQ/L (136-145); TOTAL PROTEIN 6.6 GM/DL (6.4-8.2); TRIGLYCERIDES LEVEL 38 MG/DL (<150)
[2022-03-12 18:23] LABS: TOTAL T3 51.6 NG/DL (60.0-181.0); VITAMIN B12 LEVEL > 2000 PG/ML (247-911)
== END ==
LOC: M SFHCCLAY 14:17
PROVIDERS: ATTEND Family Medicine
DX: E10.42 Type 1 diabetes mellitus with diabetic polyneuropathy (principal); I10 Essential (primary) hypertension; D51.9 Vitamin B12 deficiency anemia, unspecified; E55.9 Vitamin D deficiency, unspecified; E78.2 Mixed hyperlipidemia; N40.0 Benign prostatic hyperplasia without lower urinary tract symptoms

== ENCOUNTER 2022-03-27 08:30 | Emergency (ER) | payer MEDICARE, BC, OTHER ==
[~2022-03-27] VITALS: Ht 175.3 cm; Wt 97.0 kg
[~2022-03-27 08:30] MED LIST changes: -CEPH500C; -ELIQ5TAB PO; -FLEC25TA; -FURO20TA2; -LASI40TA9 PO; -NORV5TAB PO
[2022-03-27] MEDS ORDERED: FURO20TA2 (08:40)
[2022-03-27] MEDS ORDERED: CEPH500C (08:40)
[2022-03-27] MEDS ORDERED: FLEC25TA (08:40)
[2022-03-27 09:14] LABS: BASO % 0.6 % (0.0-1.0); EOS # 0.1 10^3/uL (0.0-0.5); EOS % 2.5 % (0.0-3.0); HEMATOCRIT 40.2 % (42.0-52.0); HEMOGLOBIN 13.5 g/dl (13.5-17.5); LYMPH % 18.6 % (24.0-44.0); MEAN CORPUSCULAR HEMOGLOBIN 32.7 pg (27.0-33.0); MEAN CORPUSCULAR HGB CONC 33.6 g/dl (32.0-36.5); MEAN CORPUSCULAR VOLUME 97.3 fl (80.0-96.0); MONO # 0.7 10^3/uL (0.0-0.8); MONO % 13.7 % (2.0-8.0); NEUTROPHILS # 3.3 10^3/uL (1.5-8.5); NEUTROPHILS % 64.4 % (36.0-66.0); PLATELET COUNT, AUTOMATED 129 10^3/uL (150-450); RED BLOOD COUNT 4.13 10^6/uL (4.30-6.10); WHITE BLOOD COUNT 5.1 10^3/uL (4.0-10.0)
[2022-03-27 09:23] LABS: INR 1.2; PROTHROMBIN TIME 15.6 SECONDS (12.7-14.5)
[2022-03-27 09:32] LABS: ALBUMIN 3.7 GM/DL (3.2-5.2); BILIRUBIN,DIRECT 0.2 MG/DL (0.0-0.2); BILIRUBIN,TOTAL 0.6 MG/DL (0.2-1.0); CALCIUM LEVEL 9.2 MG/DL (8.8-10.2); CK-MB VALUE MASS 3.5 NG/ML (<3.6); CREATININE FOR GFR 1.6 MG/DL (0.70-1.30); GLOMERULAR FILTRATION RATE 45.9 (>49); MB/CK RELATIVE INDEX 1.25 (< OR =4); POTASSIUM SERUM 4.6 MEQ/L (3.5-5.1)
[2022-03-27] MEDS ORDERED: FLECAINIDE 50MG TABLET PO STA (10:48)
[2022-03-27] MEDS ORDERED: FUROSEMIDE 40MG/4ML VIAL (J1940) IV ONE (10:50)
[2022-03-27] MEDS ORDERED: NORV5TAB PO (15:22)
[2022-03-27] MEDS ORDERED: LASI40TA9 PO (15:23)
[2022-03-27] MEDS ORDERED: ELIQ5TAB PO (15:23)
[2022-03-27] MEDS ORDERED: amLODIPine 5 MG TAB PO ONE (15:30)
[2022-03-27 15:36] VITALS: BP 174/115
[2022-03-27 15:49] VITALS: BP 154/92
== END 2022-03-27 15:58 | disposition home or self-care (01) ==
LOC: M ED 08:30
DX: R60.9 Edema, unspecified (principal); I48.92 Unspecified atrial flutter; E11.9 Type 2 diabetes mellitus without complications; I10 Essential (primary) hypertension; E78.5 Hyperlipidemia, unspecified; Z95.0 Presence of cardiac pacemaker; Z79.899 Other long term (current) drug therapy; Z79.82 Long term (current) use of aspirin; Z79.01 Long term (current) use of anticoagulants; Z79.4 Long term (current) use of insulin
CPT/HCPCS: 71045; 80048; 80076; 82550; 82553; 83690; 83880; 84484; 85025; 85610; 93005; 93041; 93970; 94760; 96374; 99285; J1940

== ENCOUNTER → 2022-04-08 | Outpatient (REF) | payer MEDICARE, OTHER ==
[~2022-04-08] MED LIST changes: +CEPH500C; +ELIQ5TAB PO; +FLEC25TA; +FURO20TA2; +LASI40TA9 PO; +NORV5TAB PO
[2022-04-08 19:33] LABS: CREATININE FOR GFR 1.82 MG/DL (0.70-1.30); GLOMERULAR FILTRATION RATE 39.5 (>49)
[2022-04-08 19:34] LABS: CALCIUM LEVEL 8.7 MG/DL (8.8-10.2)
== END ==
LOC: M LABDRAWC 15:49
PROVIDERS: ATTEND Emergency Medicine
DX: N28.9 Disorder of kidney and ureter, unspecified (principal)

== ENCOUNTER → 2022-04-17 | Outpatient (REF) | payer MEDICARE, OTHER ==
[2022-04-17 12:35] LABS: CALCIUM LEVEL 8.5 MG/DL (8.8-10.2); CREATININE FOR GFR 1.63 MG/DL (0.70-1.30); GLOMERULAR FILTRATION RATE 44.9 (>49); MAGNESIUM LEVEL 2.5 MG/DL (1.8-2.4); POTASSIUM SERUM 4.7 MEQ/L (3.5-5.1)
== END ==
LOC: M LABDRAWC 11:05
PROVIDERS: ATTEND Physician Assistant
DX: I50.9 Heart failure, unspecified (principal); I48.3 Typical atrial flutter

== ENCOUNTER → 2022-04-22 | Outpatient (CLI) | payer MEDICARE, BC, OTHER | LOC: M CARPUL 09:54 | PROVIDERS: ATTEND Physician Assistant | DX: I50.9 Heart failure, unspecified (principal); I35.9 Nonrheumatic aortic valve disorder, unspecified ==

== ENCOUNTER → 2022-04-25 | Outpatient (REF) | payer MEDICARE, OTHER ==
[2022-04-25 17:49] LABS: BASO % 0.5 % (0.0-1.0); EOS # 0.2 10^3/uL (0.0-0.5); EOS % 2.9 % (0.0-3.0); HEMATOCRIT 33.8 % (42.0-52.0); LYMPH # 0.9 10^3/uL (1.5-5.0); LYMPH % 14.8 % (24.0-44.0); MEAN CORPUSCULAR HEMOGLOBIN 32.3 pg (27.0-33.0); MEAN CORPUSCULAR HGB CONC 32.5 g/dl (32.0-36.5); MEAN CORPUSCULAR VOLUME 99.1 fl (80.0-96.0); MONO # 0.6 10^3/uL (0.0-0.8); MONO % 9.4 % (2.0-8.0); NEUTROPHILS # 4.2 10^3/uL (1.5-8.5); NEUTROPHILS % 72.1 % (36.0-66.0); RED BLOOD COUNT 3.41 10^6/uL (4.30-6.10); WHITE BLOOD COUNT 5.9 10^3/uL (4.0-10.0)
[2022-04-25 18:27] LABS: ALBUMIN 3.2 GM/DL (3.2-5.2); BILIRUBIN,TOTAL 0.7 MG/DL (0.2-1.0); CREATININE FOR GFR 1.34 MG/DL (0.70-1.30); GLOMERULAR FILTRATION RATE 56.1 (>42); POTASSIUM SERUM 4.9 MEQ/L (3.5-5.1); TOTAL PROTEIN 6.4 GM/DL (6.4-8.2)
[2022-04-25 18:33] LABS: PLATELET COUNT, AUTOMATED 90 10^3/uL (150-450)
== END ==
LOC: M LABDRAWC 16:45
PROVIDERS: ATTEND Physician Assistant
DX: I27.81 Cor pulmonale (chronic) (principal); I50.32 Chronic diastolic (congestive) heart failure; I48.3 Typical atrial flutter

== ENCOUNTER → 2022-05-08 | Outpatient (REF) | payer MEDICARE, OTHER ==
[2022-05-08 18:15] LABS: HEMATOCRIT 32.3 % (42.0-52.0); HEMOGLOBIN 10.3 g/dl (13.5-17.5); MEAN CORPUSCULAR HEMOGLOBIN 32.4 pg (27.0-33.0); MEAN CORPUSCULAR HGB CONC 31.9 g/dl (32.0-36.5); MEAN CORPUSCULAR VOLUME 101.6 fl (80.0-96.0); PLATELET COUNT, AUTOMATED 112 10^3/uL (150-450); RED BLOOD COUNT 3.18 10^6/uL (4.30-6.10); WHITE BLOOD COUNT 5.6 10^3/uL (4.0-10.0)
[2022-05-08 18:38] LABS: CALCIUM LEVEL 8.6 MG/DL (8.8-10.2); CREATININE FOR GFR 1.55 MG/DL (0.70-1.30); GLOMERULAR FILTRATION RATE 47.4 (>42); MAGNESIUM LEVEL 2.3 MG/DL (1.8-2.4); POTASSIUM SERUM 4.4 MEQ/L (3.5-5.1)
== END ==
LOC: M LABDRAWC 17:32
PROVIDERS: ATTEND Physician Assistant
DX: I27.81 Cor pulmonale (chronic) (principal); I50.32 Chronic diastolic (congestive) heart failure; I48.3 Typical atrial flutter

== ENCOUNTER → 2022-05-27 | Outpatient (REF) | payer MEDICARE, OTHER ==
[2022-05-27 12:14] LABS: HEMATOCRIT 31.8 % (42.0-52.0); HEMOGLOBIN 9.7 g/dl (13.5-17.5); MEAN CORPUSCULAR HEMOGLOBIN 30.5 pg (27.0-33.0); MEAN CORPUSCULAR HGB CONC 30.5 g/dl (32.0-36.5); PLATELET COUNT, AUTOMATED 118 10^3/uL (150-450); RED BLOOD COUNT 3.18 10^6/uL (4.30-6.10); WHITE BLOOD COUNT 5.7 10^3/uL (4.0-10.0)
[2022-05-27 13:01] LABS: CALCIUM LEVEL 9.3 MG/DL (8.8-10.2); CREATININE FOR GFR 2.43 MG/DL (0.70-1.30); GLOMERULAR FILTRATION RATE 28.2 (>42); MAGNESIUM LEVEL 2.8 MG/DL (1.8-2.4); POTASSIUM SERUM 5.4 MEQ/L (3.5-5.1)
== END ==
LOC: M LABDRAWC 11:39
PROVIDERS: ATTEND Physician Assistant
DX: I27.81 Cor pulmonale (chronic) (principal); I50.32 Chronic diastolic (congestive) heart failure; I48.3 Typical atrial flutter

== ENCOUNTER → 2022-06-03 | Outpatient (REF) | payer MEDICARE, OTHER ==
[2022-06-03 17:40] LABS: HEMATOCRIT 29.8 % (42.0-52.0); HEMOGLOBIN 9.2 g/dl (13.5-17.5); MEAN CORPUSCULAR HEMOGLOBIN 30.6 pg (27.0-33.0); MEAN CORPUSCULAR HGB CONC 30.9 g/dl (32.0-36.5); PLATELET COUNT, AUTOMATED 113 10^3/uL (150-450); RED BLOOD COUNT 3.01 10^6/uL (4.30-6.10); WHITE BLOOD COUNT 5.7 10^3/uL (4.0-10.0)
[2022-06-03 18:18] LABS: CALCIUM LEVEL 8.6 MG/DL (8.8-10.2); CREATININE FOR GFR 1.99 MG/DL (0.70-1.30); GLOMERULAR FILTRATION RATE 35.5 (>42); POTASSIUM SERUM 4.7 MEQ/L (3.5-5.1)
== END ==
LOC: M LABDRAWC 16:59
PROVIDERS: ATTEND Physician Assistant
DX: I27.81 Cor pulmonale (chronic) (principal); I50.32 Chronic diastolic (congestive) heart failure; I48.3 Typical atrial flutter

== ENCOUNTER → 2022-06-11 | Outpatient (REF) | payer MEDICARE, OTHER ==
[2022-06-11 18:12] LABS: PERCENT SATURATION 66.2 % (19.7-50.0)
== END ==
LOC: M LAB REF 17:01
PROVIDERS: ATTEND Internal Medicine Nephrology
DX: N18.9 Chronic kidney disease, unspecified (principal); D63.1 Anemia in chronic kidney disease

== ENCOUNTER → 2022-06-13 | Outpatient (CLI) | payer MEDICARE, OTHER | LOC: M SLEEP HO 11:20 | PROVIDERS: ATTEND Physician Assistant | DX: G47.9 Sleep disorder, unspecified (principal) ==

== ENCOUNTER → 2022-06-18 | Outpatient (REF) | payer MEDICARE, OTHER ==
[2022-06-18 11:41] LABS: HEMATOCRIT 29.9 % (42.0-52.0); HEMOGLOBIN 9.1 g/dl (13.5-17.5); MEAN CORPUSCULAR HEMOGLOBIN 30.1 pg (27.0-33.0); MEAN CORPUSCULAR HGB CONC 30.4 g/dl (32.0-36.5); PLATELET COUNT, AUTOMATED 151 10^3/uL (150-450); RED BLOOD COUNT 3.02 10^6/uL (4.30-6.10); WHITE BLOOD COUNT 4.5 10^3/uL (4.0-10.0)
[2022-06-18 12:02] LABS: CREATININE FOR GFR 2.16 MG/DL (0.70-1.30); GLOMERULAR FILTRATION RATE 32.3 (>42); POTASSIUM SERUM 5.2 MEQ/L (3.5-5.1)
== END ==
LOC: M LABDRAWC 11:14
PROVIDERS: ATTEND Physician Assistant
DX: I27.81 Cor pulmonale (chronic) (principal); I50.32 Chronic diastolic (congestive) heart failure; I48.3 Typical atrial flutter

== ENCOUNTER → 2022-07-29 | Outpatient (REF) | payer MEDICARE, OTHER ==
[2022-07-29 18:24] LABS: HEMOGLOBIN 10.1 g/dl (13.5-17.5); MEAN CORPUSCULAR HEMOGLOBIN 31.2 pg (27.0-33.0); MEAN CORPUSCULAR HGB CONC 31.6 g/dl (32.0-36.5); MEAN CORPUSCULAR VOLUME 98.8 fl (80.0-96.0); PLATELET COUNT, AUTOMATED 149 10^3/uL (150-450); RED BLOOD COUNT 3.24 10^6/uL (4.30-6.10); WHITE BLOOD COUNT 3.5 10^3/uL (4.0-10.0)
[2022-07-29 19:06] LABS: CALCIUM LEVEL 8.8 MG/DL (8.8-10.2); CREATININE FOR GFR 1.65 MG/DL (0.70-1.30); GLOMERULAR FILTRATION RATE 44.1 (>42); POTASSIUM SERUM 4.5 MEQ/L (3.5-5.1)
== END ==
LOC: M LABDRAWC 17:27
PROVIDERS: ATTEND Physician Assistant
DX: I27.81 Cor pulmonale (chronic) (principal)

== ENCOUNTER → 2022-08-09 | Outpatient (CLI) | payer MEDICARE, OTHER | LOC: M SLEEP 20:00 | PROVIDERS: ATTEND Nurse Practitioner Family | DX: G47.33 Obstructive sleep apnea (adult) (pediatric) (principal) ==

== ENCOUNTER → 2022-10-21 | Outpatient (REF) | payer MEDICARE, OTHER ==
[2022-10-21 18:08] LABS: CALCIUM LEVEL 8.7 MG/DL (8.3-10.6); CREATININE FOR GFR 1.32 MG/DL (0.70-1.30); GLOMERULAR FILTRATION RATE 57.1 (>42); POTASSIUM SERUM 4.6 MMOL/L (3.5-5.1)
[2022-10-21 18:20] LABS: HEMOGLOBIN 10.6 g/dl (13.5-17.5); MEAN CORPUSCULAR HGB CONC 31.2 g/dl (32.0-36.5); MEAN CORPUSCULAR VOLUME 89.7 fl (80.0-96.0); PLATELET COUNT, AUTOMATED 166 10^3/uL (150-450); RED BLOOD COUNT 3.79 10^6/uL (4.30-6.10); WHITE BLOOD COUNT 4.7 10^3/uL (4.0-10.0)
== END ==
LOC: M LABDRAWC 17:22
PROVIDERS: ATTEND Physician Assistant
DX: I48.3 Typical atrial flutter (principal); I27.81 Cor pulmonale (chronic); I50.32 Chronic diastolic (congestive) heart failure

== ENCOUNTER → 2022-11-11 | Outpatient (REF) | payer MEDICARE, OTHER ==
[2022-11-11 18:15] LABS: HEMOGLOBIN A1c 6.9 % (4.0-6.0)
[2022-11-11 18:20] LABS: ALBUMIN 3.6 G/DL (3.2-5.2); BILIRUBIN,TOTAL 0.4 MG/DL (0.3-1.2); CALCIUM LEVEL 8.8 MG/DL (8.3-10.6); CHOLESTEROL RISK RATIO 1.91 (<5); CREATININE FOR GFR 1.47 MG/DL (0.70-1.30); GLOMERULAR FILTRATION RATE 50.4 (>42); HDL CHOLESTEROL 68.5 MG/DL (>40); LDL CHOLESTEROL 53.7 MG/DL (<100); POTASSIUM SERUM 5.5 MMOL/L (3.5-5.1); TOTAL PROTEIN 6.7 G/DL (5.7-8.2)
== END ==
LOC: M SFHCCLAY 09:07
PROVIDERS: ATTEND Family Medicine
DX: E78.2 Mixed hyperlipidemia (principal); E55.9 Vitamin D deficiency, unspecified; E10.649 Type 1 diabetes mellitus with hypoglycemia without coma

== ENCOUNTER → 2022-12-27 | Outpatient (CLI) | payer MEDICARE, OTHER ==
[~2022-12-27] MED LIST changes: +DESM0.1T16 PO; -DESM0.1T2 PO
== END ==
LOC: M SLEEP 20:00
PROVIDERS: ATTEND Nurse Practitioner Family
DX: G47.33 Obstructive sleep apnea (adult) (pediatric) (principal)

== ENCOUNTER → 2023-03-06 | Outpatient (REF) | payer MEDICARE, OTHER ==
[2023-03-06 18:54] LABS: CALCIUM LEVEL 9.4 MG/DL (8.3-10.6); CREATININE FOR GFR 1.28 MG/DL (0.70-1.30); GLOMERULAR FILTRATION RATE 59.1 (>42); POTASSIUM SERUM 4.7 MMOL/L (3.5-5.1)
== END ==
LOC: M LABDRAWC 17:19
PROVIDERS: ATTEND Internal Medicine
DX: I48.3 Typical atrial flutter (principal)

== ENCOUNTER → 2023-03-28 | Outpatient (REF) | payer MEDICARE, OTHER ==
[2023-03-28 12:32] LABS: HEMOGLOBIN A1c 7.3 % (4.0-6.0)
[2023-03-28 12:54] LABS: ALBUMIN 3.5 G/DL (3.2-5.2); BILIRUBIN,TOTAL 0.6 MG/DL (0.3-1.2); CREATININE FOR GFR 1.36 MG/DL (0.70-1.30); GLOMERULAR FILTRATION RATE 55.2 (>42); POTASSIUM SERUM 4.3 MMOL/L (3.5-5.1); TOTAL PROTEIN 6.7 G/DL (5.7-8.2)
== END ==
LOC: M SFHCCLAY 09:10
PROVIDERS: ATTEND Family Medicine
DX: E10.649 Type 1 diabetes mellitus with hypoglycemia without coma (principal)

== ENCOUNTER 2023-06-09 13:08 | Day surgery (SDC) | payer MEDICARE, BC, OTHER ==
[~2023-06-09] VITALS: Ht 175.3 cm; Wt 75.7 kg
[~2023-06-09 13:08] MED LIST changes: +AMIO200T49 PO; -AMIT50TA; +AMIT50TA PO; +BAYE81TA10 PO; +OMEP-173 PO; -PREG150C; +PREG150C2; +TORS10TA3 PO
[2023-06-09] MEDS ORDERED: LR 1,000 ML IV SCH (13:55)
[2023-06-09] MEDS ORDERED: propofoL 200 MG/20 ML VIAL As Ordered ONE (16:01)
[2023-06-09] MEDS ORDERED: LIDOCAINE 2% 100MG/5ML SDV (FOR ANES.) As Ordered ONE (16:01)
[2023-06-09] MEDS ORDERED: MIDAZOLAM INJ 2MG/2ML VIAL As Ordered ONE (16:02)
[2023-06-09] MEDS ORDERED: fentaNYL 100 MCG/2 ML INJECTION As Ordered ONE (16:02)
[2023-06-09] MEDS ORDERED: CETACAINE SPRAY 5GM As Ordered ONE (16:26)
[2023-06-09 17:25] VITALS: BP 159/78; TEMP 97.7; O2SAT 95
== END 2023-06-09 17:26 | disposition home or self-care (01) ==
LOC: M SDC 13:08
PROVIDERS: ATTEND Internal Medicine Cardiovascular Disease
DX: I48.92 Unspecified atrial flutter (principal); Z45.09 Encounter for adjustment and management of other cardiac device; I25.10 Atherosclerotic heart disease of native coronary artery without angina pectoris; I08.0 Rheumatic disorders of both mitral and aortic valves; I50.9 Heart failure, unspecified; E11.9 Type 2 diabetes mellitus without complications; J30.2 Other seasonal allergic rhinitis; Z79.899 Other long term (current) drug therapy; Z79.01 Long term (current) use of anticoagulants
CPT/HCPCS: 93312; 93320; 93325; J2250; J3010

== ENCOUNTER → 2023-08-04 | Outpatient (CLI) | payer MEDICARE, BC, OTHER | LOC: M CLY 10:29 | PROVIDERS: ATTEND Physician Assistant | DX: I48.3 Typical atrial flutter (principal); R91.8 Other nonspecific abnormal finding of lung field; I50.32 Chronic diastolic (congestive) heart failure; I27.81 Cor pulmonale (chronic) ==

== ENCOUNTER → 2023-08-04 | Outpatient (REF) | payer MEDICARE, OTHER ==
[2023-08-04 18:34] LABS: THYROID STIMULATING HORMONE 0.646 uIU/ML (0.55-4.78)
[2023-08-04 18:36] LABS: ALBUMIN 3.4 G/DL (3.2-5.2); ALKALINE PHOSPHATASE 85 U/L (46-116); ALT/SGPT 27 U/L (7.0-40); AST/SGOT 28 U/L (<34); BILIRUBIN,TOTAL 0.4 MG/DL (0.3-1.2); BLOOD UREA NITROGEN 24 MG/DL (9-23); CALCIUM LEVEL 8.7 MG/DL (8.3-10.6); CARBON DIOXIDE LEVEL 32 MMOL/L (20-31); CHLORIDE LEVEL 105 MMOL/L (98-107); CREATININE FOR GFR 1.14 MG/DL (0.70-1.30); GLOMERULAR FILTRATION RATE > 60.0 (>42); GLUCOSE, FASTING 82 MG/DL (74-106); MAGNESIUM LEVEL 2.2 MG/DL (1.8-2.4); POTASSIUM SERUM 4.7 MMOL/L (3.5-5.1); SODIUM LEVEL 142 MMOL/L (136-145); TOTAL PROTEIN 6.7 G/DL (5.7-8.2)
== END ==
LOC: M LABDRAWC 17:11
PROVIDERS: ATTEND Physician Assistant
DX: I48.3 Typical atrial flutter (principal); I50.32 Chronic diastolic (congestive) heart failure; I27.81 Cor pulmonale (chronic)

== ENCOUNTER → 2023-11-04 | Outpatient (REF) | payer MEDICARE, BC, OTHER ==
[2023-11-04 12:50] LABS: BASO % 0.8 % (0.0-1.0); EOS # 0.2 10^3/uL (0.0-0.5); EOS % 4.3 % (0.0-3.0); HEMATOCRIT 40.8 % (42.0-52.0); HEMOGLOBIN 13.6 g/dl (13.5-17.5); LYMPH # 1.3 10^3/uL (1.5-5.0); LYMPH % 33.3 % (24.0-44.0); MEAN CORPUSCULAR HEMOGLOBIN 31.7 pg (27.0-33.0); MEAN CORPUSCULAR HGB CONC 33.3 g/dl (32.0-36.5); MEAN CORPUSCULAR VOLUME 95.1 fl (80.0-96.0); MONO # 0.6 10^3/uL (0.0-0.8); MONO % 14.1 % (2.0-8.0); NEUTROPHILS # 1.9 10^3/uL (1.5-8.5); NEUTROPHILS % 46.7 % (36.0-66.0); PLATELET COUNT, AUTOMATED 113 10^3/uL (150-450); RED BLOOD COUNT 4.29 10^6/uL (4.30-6.10)
[2023-11-04 13:04] LABS: HEMOGLOBIN A1c 6.5 % (4.0-6.0)
[2023-11-04 13:13] LABS: ALBUMIN 3.6 G/DL (3.2-5.2); ALKALINE PHOSPHATASE 68 U/L (46-116); ALT/SGPT 45 U/L (7.0-40); AST/SGOT 38 U/L (<34); BILIRUBIN,TOTAL 0.5 MG/DL (0.3-1.2); BLOOD UREA NITROGEN 29 MG/DL (9-23); CALCIUM LEVEL 8.6 MG/DL (8.3-10.6); CARBON DIOXIDE LEVEL 33 MMOL/L (20-31); CHLORIDE LEVEL 105 MMOL/L (98-107); CHOLESTEROL LEVEL 143 MG/DL (<200); CHOLESTEROL RISK RATIO 2.06 (<5); CREATININE FOR GFR 1.37 MG/DL (0.70-1.30); GLOMERULAR FILTRATION RATE 54.5 (>42); GLUCOSE, FASTING 105 MG/DL (74-106); HDL CHOLESTEROL 69.2 MG/DL (>40); LDL CHOLESTEROL 62.6 MG/DL (<100); NON-HDL-C 73.8 MG/DL; POTASSIUM SERUM 4.8 MMOL/L (3.5-5.1); SODIUM LEVEL 141 MMOL/L (136-145); TOTAL PROTEIN 6.4 G/DL (5.7-8.2); TRIGLYCERIDES LEVEL 56 MG/DL (<150)
[2023-11-04 13:14] LABS: FREE T4 1.02 NG/DL (0.89-1.76); THYROID STIMULATING HORMONE 0.708 uIU/ML (0.55-4.78)
[2023-11-04 13:18] LABS: VITAMIN B12 LEVEL > 2000 PG/ML (211-911)
== END ==
LOC: M SFHCCLAY 08:18
PROVIDERS: ATTEND Family Medicine
DX: I10 Essential (primary) hypertension (principal); E10.649 Type 1 diabetes mellitus with hypoglycemia without coma; I48.0 Paroxysmal atrial fibrillation; E55.9 Vitamin D deficiency, unspecified; D51.9 Vitamin B12 deficiency anemia, unspecified

== ENCOUNTER → 2024-02-10 | Outpatient (REF) | payer MEDICARE, BC, OTHER ==
[2024-02-10 17:51] LABS: CALCIUM LEVEL 8.9 MG/DL (8.3-10.6); CREATININE FOR GFR 1.31 MG/DL (0.70-1.30); GLOMERULAR FILTRATION RATE 57.4 (>42); MAGNESIUM LEVEL 2.2 MG/DL (1.8-2.4); POTASSIUM SERUM 4.2 MMOL/L (3.5-5.1)
== END ==
LOC: M LABDRAWC 17:10
PROVIDERS: ATTEND Physician Assistant
DX: I27.81 Cor pulmonale (chronic) (principal); I48.3 Typical atrial flutter

== ENCOUNTER → 2024-03-30 | Outpatient (CLI) | payer MEDICARE, BC, OTHER | LOC: M CLY 08:48 | PROVIDERS: ATTEND Physician Assistant | DX: I48.3 Typical atrial flutter (principal) ==

== ENCOUNTER → 2024-04-30 | Outpatient (REF) | payer MEDICARE, BC ==
[2024-04-30 11:52] LABS: HEMOGLOBIN A1c 6.8 % (4.0-6.0)
== END ==
LOC: M SFHCCLAY 08:56
PROVIDERS: ATTEND Family Medicine
DX: E10.65 Type 1 diabetes mellitus with hyperglycemia (principal)

== ENCOUNTER → 2024-06-23 | Outpatient (REF) | payer MEDICARE, BC ==
[~2024-06-23] MED LIST changes: +GABA-1172 PO; -GABA-282 PO
[2024-06-23 12:05] LABS: BASO % 1.1 % (0.0-1.0); EOS # 0.2 10^3/uL (0.0-0.5); EOS % 5.2 % (0.0-3.0); HEMATOCRIT 46.1 % (42.0-52.0); HEMOGLOBIN 15.8 g/dl (13.5-17.5); LYMPH # 1.1 10^3/uL (1.5-5.0); LYMPH % 29.1 % (24.0-44.0); MEAN CORPUSCULAR HEMOGLOBIN 32.5 pg (27.0-33.0); MEAN CORPUSCULAR HGB CONC 34.3 g/dl (32.0-36.5); MEAN CORPUSCULAR VOLUME 94.9 fl (80.0-96.0); MONO # 0.4 10^3/uL (0.0-0.8); MONO % 11.8 % (2.0-8.0); NEUTROPHILS # 1.9 10^3/uL (1.5-8.5); NEUTROPHILS % 52.5 % (36.0-66.0); PLATELET COUNT, AUTOMATED 118 10^3/uL (150-450); RED BLOOD COUNT 4.86 10^6/uL (4.30-6.10); WHITE BLOOD COUNT 3.6 10^3/uL (4.0-10.0)
[2024-06-23 12:10] LABS: ALBUMIN 3.9 G/DL (3.2-5.2); ALKALINE PHOSPHATASE 68 U/L (46-116); ALT/SGPT 34 U/L (7.0-40); AST/SGOT 26 U/L (<34); BILIRUBIN,TOTAL 0.5 MG/DL (0.3-1.2); BLOOD UREA NITROGEN 26 MG/DL (9-23); CARBON DIOXIDE LEVEL 35 MMOL/L (20-31); CHLORIDE LEVEL 104 MMOL/L (98-107); CREATININE FOR GFR 1.25 MG/DL (0.70-1.30); GLOMERULAR FILTRATION RATE > 60.0 (>42); GLUCOSE, FASTING 77 MG/DL (74-106); IRON (FE) 64 UG/DL (65-175); POTASSIUM SERUM 4.4 MMOL/L (3.5-5.1); SODIUM LEVEL 141 MMOL/L (136-145); TOTAL PROTEIN 7.2 G/DL (5.7-8.2)
[2024-06-23 12:13] LABS: FERRITIN 69.5 NG/ML (10.5-307.3)
[2024-06-23 12:17] LABS: HEPATITIS B SURFACE ANTIBODY NEGATIVE (POSITIVE)
[2024-06-23 12:43] LABS: HIV 1&2 SCREEN NEGATIVE (NEGATIVE)
[2024-06-23 12:51] LABS: HEPATITIS C VIRUS ABY INDEX 0.04 INDEX (<0.8)
== END ==
LOC: M SFHCPLAZ 08:55
PROVIDERS: ATTEND Internal Medicine Hematology
DX: D72.819 Decreased white blood cell count, unspecified (principal); D69.6 Thrombocytopenia, unspecified; Z11.59 Encounter for screening for other viral diseases

== ENCOUNTER → 2024-08-10 | Outpatient (CLI) | payer MEDICARE, BC | LOC: M CLY 09:11 | PROVIDERS: ATTEND Physician Assistant | DX: I48.3 Typical atrial flutter (principal); R91.1 Solitary pulmonary nodule; Z95.0 Presence of cardiac pacemaker; I50.32 Chronic diastolic (congestive) heart failure; E78.00 Pure hypercholesterolemia, unspecified; I25.10 Atherosclerotic heart disease of native coronary artery without angina pectoris ==

== ENCOUNTER → 2024-08-10 | Outpatient (REF) | payer MEDICARE, BC ==
[2024-08-10 12:11] LABS: HEMATOCRIT 44.7 % (42.0-52.0); HEMOGLOBIN 14.8 g/dl (13.5-17.5); MEAN CORPUSCULAR HEMOGLOBIN 31.4 pg (27.0-33.0); MEAN CORPUSCULAR HGB CONC 33.1 g/dl (32.0-36.5); MEAN CORPUSCULAR VOLUME 94.9 fl (80.0-96.0); PLATELET COUNT, AUTOMATED 130 10^3/uL (150-450); RED BLOOD COUNT 4.71 10^6/uL (4.30-6.10); WHITE BLOOD COUNT 4.1 10^3/uL (4.0-10.0)
[2024-08-10 12:39] LABS: ALBUMIN 3.7 G/DL (3.2-5.2); ALKALINE PHOSPHATASE 66 U/L (40-129); ALT/SGPT 29 U/L (7.0-40); AST/SGOT 27 U/L (<34); BILIRUBIN,TOTAL 0.6 MG/DL (0.3-1.2); BLOOD UREA NITROGEN 24 MG/DL (9-23); CALCIUM LEVEL 9.3 MG/DL (8.3-10.6); CARBON DIOXIDE LEVEL 34 MMOL/L (20-31); CHLORIDE LEVEL 102 MMOL/L (98-107); CHOLESTEROL LEVEL 194 MG/DL (<200); CREATININE FOR GFR 1.23 MG/DL (0.70-1.30); GLOMERULAR FILTRATION RATE > 60.0 (>42); GLUCOSE, FASTING 61 MG/DL (74-106); HDL CHOLESTEROL 77.6 MG/DL (>40); LDL CHOLESTEROL 105.4 MG/DL (<100); MAGNESIUM LEVEL 2.4 MG/DL (1.8-2.4); NON-HDL-C 116.4 MG/DL; POTASSIUM SERUM 4.4 MMOL/L (3.5-5.1); SODIUM LEVEL 141 MMOL/L (136-145); TOTAL PROTEIN 7.2 G/DL (5.7-8.2); TRIGLYCERIDES LEVEL 55 MG/DL (<150)
[2024-08-10 12:40] LABS: THYROID STIMULATING HORMONE 1.321 uIU/ML (0.55-4.78)
== END ==
LOC: M LABDRAWC 11:25
PROVIDERS: ATTEND Physician Assistant
DX: I48.3 Typical atrial flutter (principal); I50.32 Chronic diastolic (congestive) heart failure; E78.00 Pure hypercholesterolemia, unspecified; I25.10 Atherosclerotic heart disease of native coronary artery without angina pectoris

== ENCOUNTER → 2024-10-29 | Outpatient (REF) | payer MEDICARE, BC ==
[2024-10-29 12:06] LABS: BASO % 0.6 % (0.0-1.0); EOS # 0.2 10^3/uL (0.0-0.5); EOS % 5.3 % (0.0-3.0); HEMATOCRIT 42.9 % (42.0-52.0); HEMOGLOBIN 14.5 g/dl (13.5-17.5); LYMPH # 0.9 10^3/uL (1.5-5.0); LYMPH % 25.2 % (24.0-44.0); MEAN CORPUSCULAR HEMOGLOBIN 32.2 pg (27.0-33.0); MEAN CORPUSCULAR HGB CONC 33.8 g/dl (32.0-36.5); MEAN CORPUSCULAR VOLUME 95.1 fl (80.0-96.0); MONO # 0.7 10^3/uL (0.0-0.8); MONO % 18.3 % (2.0-8.0); NEUTROPHILS # 1.8 10^3/uL (1.5-8.5); NEUTROPHILS % 49.8 % (36.0-66.0); PERCENT SATURATION 14.8 % (19.7-50.0); PLATELET COUNT, AUTOMATED 128 10^3/uL (150-450); RED BLOOD COUNT 4.51 10^6/uL (4.30-6.10); WHITE BLOOD COUNT 3.6 10^3/uL (4.0-10.0)
[2024-10-29 12:09] LABS: FERRITIN 102.1 NG/ML (10.5-307.3)
[2024-10-29 12:10] LABS: ALBUMIN 3.6 G/DL (3.2-5.2); BILIRUBIN,TOTAL 0.5 MG/DL (0.3-1.2); CREATININE FOR GFR 1.35 MG/DL (0.70-1.30); GLOMERULAR FILTRATION RATE 55.3 (>42); POTASSIUM SERUM 4.2 MMOL/L (3.5-5.1); PSA SCREENING 0.74 NG/ML (< 4.00)
[2024-10-29 12:28] LABS: HEMOGLOBIN A1c 6.4 % (4.0-6.0)
== END ==
LOC: M SFHCCLAY 08:56
PROVIDERS: ATTEND Family Medicine
DX: D72.819 Decreased white blood cell count, unspecified (principal); E10.65 Type 1 diabetes mellitus with hyperglycemia; Z12.5 Encounter for screening for malignant neoplasm of prostate; E61.1 Iron deficiency
CPT/HCPCS: 80053; 82728; 83036; 83550; 85025; G0103

== ENCOUNTER 2024-12-27 10:09 | Day surgery (SDC) | payer MEDICARE, BC ==
[~2024-12-27] VITALS: Ht 175.3 cm; Wt 76.3 kg
[~2024-12-27 10:09] MED LIST changes: +ATOR1TAB21 PO; +D200CAP3 PO
[2024-12-27] MEDS ORDERED: GLYCOPYRROLATE INJ 0.2 MG/ML 2 ML VIAL As Ordered ONE (11:05)
[2024-12-27] MEDS ORDERED: LIDOCAINE 2% 100MG/5ML SDV (FOR ANES.) As Ordered ONE (11:05)
[2024-12-27] MEDS ORDERED: ePHEDrine SULFATE 25 MG/5 ML(5MG/ML) SYRINGE As Ordered ONE (11:30)
[2024-12-27] MEDS ORDERED: propofoL 200 MG/20 ML VIAL As Ordered ONE (11:31)
[2024-12-27 11:34] VITALS: TEMP 97.4
[2024-12-27 12:02] VITALS: BP 143/75; O2SAT 100
== END 2024-12-27 12:08 | disposition home or self-care (01) ==
LOC: M OPP 10:09
PROVIDERS: ATTEND Internal Medicine Gastroenterology
DX: D50.9 Iron deficiency anemia, unspecified (principal); Z86.0100 Personal history of colon polyps, unspecified; K64.0 First degree hemorrhoids; D12.0 Benign neoplasm of cecum; K57.30 Diverticulosis of large intestine without perforation or abscess without bleeding; K29.00 Acute gastritis without bleeding; E78.5 Hyperlipidemia, unspecified; G47.33 Obstructive sleep apnea (adult) (pediatric); R12 Heartburn; E10.9 Type 1 diabetes mellitus without complications; I10 Essential (primary) hypertension; I48.92 Unspecified atrial flutter; F10.10 Alcohol abuse, uncomplicated; Z91.09 Other allergy status, other than to drugs and biological substances; Z79.899 Other long term (current) drug therapy
CPT/HCPCS: 43239; 45385; 88305; J1596

== ENCOUNTER → 2025-04-29 | Outpatient (REF) | payer MEDICARE, BC ==
[~2025-04-29] MED LIST changes: -AMIO200T49 PO; +AMIO200T54 PO
[2025-04-29 13:09] LABS: ALT/SGPT 51.0 U/L (7.0-40); AST/SGOT 33.0 U/L (<34); CALCIUM LEVEL 9.1 MG/DL (8.3-10.6); CARBON DIOXIDE LEVEL 34.0 MMOL/L (20-31); CHLORIDE LEVEL 103.0 MMOL/L (98-107); CHOLESTEROL LEVEL 182.0 MG/DL (<200); CHOLESTEROL RISK RATIO 2.1 (<5); CREATININE FOR GFR 1.31 MG/DL (0.70-1.30); GLOMERULAR FILTRATION RATE 57.5 (>42); IRON (FE) 81.0 UG/DL (65-175); LDL CHOLESTEROL 85.7 MG/DL (<100); NON-HDL-C 95.5 MG/DL; PERCENT SATURATION 27.8 % (19.7-50.0); POTASSIUM SERUM 4.9 MMOL/L (3.5-5.1); SODIUM LEVEL 144.0 MMOL/L (136-145); TRIGLYCERIDES LEVEL 49.0 MG/DL (<150)
[2025-04-29 13:11] LABS: BASO # 0.0 10^3/uL (0.0-0.2); BASO % 0.6 % (0.0-1.0); EOS # 0.1 10^3/uL (0.0-0.5); EOS % 2.6 % (0.0-3.0); FREE T4 1.31 NG/DL (0.89-1.76); LYMPH # 1.3 10^3/uL (1.5-5.0); LYMPH % 26.1 % (24.0-44.0); MONO # 0.6 10^3/uL (0.0-0.8); MONO % 11.4 % (2.0-8.0); NEUTROPHILS # 2.9 10^3/uL (1.5-8.5); NEUTROPHILS % 58.9 % (36.0-66.0); PLATELET COUNT, AUTOMATED 148 10^3/uL (150-450); VITAMIN B12 LEVEL 310.0 PG/ML (211-911)
[2025-04-29 13:16] LABS: ESTIMATED AVERAGE GLUCOSE 140.0 MG/DL (60-110)
== END ==
LOC: M SFHCCLAY 08:50
PROVIDERS: ATTEND Family Medicine
DX: D72.819 Decreased white blood cell count, unspecified (principal); E61.1 Iron deficiency; I48.0 Paroxysmal atrial fibrillation; E10.65 Type 1 diabetes mellitus with hyperglycemia; E10.649 Type 1 diabetes mellitus with hypoglycemia without coma; E55.9 Vitamin D deficiency, unspecified; D51.9 Vitamin B12 deficiency anemia, unspecified

== ENCOUNTER → 2025-08-31 | Outpatient (CLI) | payer MEDICARE, BC ==
[2025-08-31 13:36] LABS: PLATELET COUNT, AUTOMATED 142 10^3/uL (150-450)
[2025-08-31 14:07] LABS: ALT/SGPT 28.0 U/L (7.0-40); AST/SGOT 27.0 U/L (<34); CALCIUM LEVEL 8.4 MG/DL (8.3-10.6); CARBON DIOXIDE LEVEL 33.0 MMOL/L (20-31); CHLORIDE LEVEL 104.0 MMOL/L (98-107); CREATININE FOR GFR 1.11 MG/DL (0.70-1.30); GLOMERULAR FILTRATION RATE 70.1 (>42); MAGNESIUM LEVEL 2.2 MG/DL (1.8-2.4); POTASSIUM SERUM 4.3 MMOL/L (3.5-5.1); SODIUM LEVEL 142.0 MMOL/L (136-145)
== END ==
LOC: M LABDRAWC 09:22
PROVIDERS: ATTEND Physician Assistant
DX: I27.81 Cor pulmonale (chronic) (principal); I50.32 Chronic diastolic (congestive) heart failure; I48.3 Typical atrial flutter

== ENCOUNTER → 2025-08-31 | Outpatient (CLI) | payer MEDICARE, BC | LOC: M CLY 09:22 | PROVIDERS: ATTEND Physician Assistant | DX: I48.3 Typical atrial flutter (principal); I27.81 Cor pulmonale (chronic); I50.32 Chronic diastolic (congestive) heart failure ==